=== PATIENT | male | born 1945 | race Caucasian/White ===

== ENCOUNTER 2017-04-23 08:00 | Outpatient (CLI) | payer MEDICARE, OTHER ==
[2017-04-23 12:23] LABS: BASOPHILS % (AUTO) 1.1 %; EOSINOPHILS # (AUTO) 0.1 10^3/uL (0.0-0.7); EOSINOPHILS % (AUTO) 2.7 %; HCT - HEMATOCRIT 32.6 % (42.0-52.0); HGB - HEMOGLOBIN 11.6 g/dL (14.0-18.0); IMMATURE RETIC FRACTION 0.57; LYMPHOCYTES # (AUTO) 1.5 10^3/uL (1.5-3.5); LYMPHOCYTES % (AUTO) 35.4 %; MEAN CORPUSCULAR HGB CONC 35.7 g/dL (32.0-36.0); MEAN CORPUSCULAR VOLUME 95.3 fL (80.0-94.0); MEAN PLATELET VOLUME 6.8 fL (7.4-11.4); MONOCYTES # (AUTO) 0.4 10^3/uL (0.0-1.0); MONOCYTES % (AUTO) 9.3 %; NEUTROPHILS # (AUTO) 2.1 10^3/uL (1.5-6.6); NEUTROPHILS % (AUTO) 51.5 %; RED BLOOD COUNT 3.42 10^6/uL (4.70-6.10); RED CELL DISTRIBUTION WIDTH 13.1 % (12.0-15.0); UNCORRECTED WHITE BLOOD COUNT 4.1 x10^3/uL; WHITE BLOOD COUNT 4.1 x10^3/uL (4.8-10.8)
[2017-04-23 12:37] LABS: ALBUMIN/GLOBULIN RATIO 1.2 (1.0-2.2); BILIRUBIN,TOTAL 1.2 mg/dL (0.2-1.0); BUN - BLOOD UREA NITROGEN 10 mg/dL (6-20); CALCIUM 8.8 mg/dL (8.5-10.3); CARBON DIOXIDE - CO2 23 mmol/L (21-32); CHLORIDE 98 mmol/L (101-111); CHOL/HDL RATIO 4.6 (<5.0); CHOLESTEROL 160 mg/dL; CREATININE 0.8 mg/dL (0.6-1.2); GFR - MDRD 96 (>89); GLUCOSE 189 mg/dL (70-100); HDL CHOLESTEROL 35 mg/dL; LDL/HDL RATIO 1.6 (<3.6); POTASSIUM 3.9 mmol/L (3.5-5.0); SODIUM 130 mmol/L (135-145); TOTAL PROTEIN 6.9 g/dL (6.7-8.2); TRIGLYCERIDES 341 mg/dL; URIC ACID 4.8 mg/dL (2.6-7.2); VLDL CHOLESTEROL 68 mg/dL
[2017-04-23 12:47] LABS: THYROID STIMULATING HORMONE 2.52 uIU/mL (0.34-5.60)
[2017-04-23 12:58] LABS: FOLATE 13.21 ng/mL (5.90 - >24.8)
== END 2017-04-23 08:01 | disposition home or self-care (01) ==
LOC: LAB.N 08:00
PROVIDERS: ATTEND Family Medicine
DX: D51.8 Other vitamin B12 deficiency anemias (principal); N52.9 Male erectile dysfunction, unspecified; E78.5 Hyperlipidemia, unspecified; I10 Essential (primary) hypertension; M10.9 Gout, unspecified
CPT/HCPCS: 36415; 80053; 80061; 82607; 82746; 84443; 84550; 85025; 85044

== ENCOUNTER 2017-05-20 09:16 | Outpatient (CLI) | payer MEDICARE, OTHER ==
[2017-05-20 12:53] LABS: CALCIUM 9.2 mg/dL (8.5-10.3); CREATININE 0.8 mg/dL (0.6-1.2); POTASSIUM 4.3 mmol/L (3.5-5.0)
[2017-05-20 13:48] LABS: HEMOGLOBIN A1C 0.91 g/dL
== END 2017-05-20 09:17 | disposition home or self-care (01) ==
LOC: LAB.N 09:16
PROVIDERS: ATTEND Family Medicine
DX: R73.01 Impaired fasting glucose (principal)
CPT/HCPCS: 36415; 80048; 83036

== ENCOUNTER 2017-09-22 10:12 | Outpatient (CLI) | payer MEDICARE, OTHER ==
[2017-09-22 13:40] LABS: HB2 TOTAL 14.4 g/dL; HEMOGLOBIN A1C 0.8 g/dL; HEMOGLOBIN A1C % 7.2 % (4.6-6.2)
[2017-09-22 13:41] LABS: CALCIUM 8.8 mg/dL (8.5-10.3); CREATININE 0.9 mg/dL (0.6-1.2)
== END 2017-09-22 10:13 | disposition home or self-care (01) ==
LOC: LAB.N 10:12
PROVIDERS: ATTEND Family Medicine
DX: E11.65 Type 2 diabetes mellitus with hyperglycemia (principal)
CPT/HCPCS: 36415; 80048; 83036

== ENCOUNTER 2018-02-09 08:00 | Outpatient (CLI) | payer MEDICARE, OTHER ==
[2018-02-09 13:23] LABS: CALCIUM 9.3 mg/dL (8.5-10.3); CREATININE 0.8 mg/dL (0.6-1.2)
[2018-02-09 14:42] LABS: HB2 TOTAL 13.3 g/dL; HEMOGLOBIN A1C 0.67 g/dL; HEMOGLOBIN A1C % 6.8 % (4.6-6.2)
== END 2018-02-09 08:01 ==
LOC: LAB.N 08:00
PROVIDERS: ATTEND Family Medicine
DX: E11.65 Type 2 diabetes mellitus with hyperglycemia (principal)
CPT/HCPCS: 36415; 80048; 83036

== ENCOUNTER 2018-05-13 08:49 | Outpatient (CLI) | payer MEDICARE, OTHER ==
[2018-05-13 13:29] LABS: BASOPHILS # (AUTO) 0.1 10^3/uL (0.0-0.1); BASOPHILS % (AUTO) 1.2 %; EOSINOPHILS # (AUTO) 0.2 10^3/uL (0.0-0.7); EOSINOPHILS % (AUTO) 3.6 %; LYMPHOCYTES # (AUTO) 1.8 10^3/uL (1.5-3.5); LYMPHOCYTES % (AUTO) 34.8 %; MEAN CORPUSCULAR HEMOGLOBIN 35.1 pg (27.0-31.0); MEAN CORPUSCULAR HGB CONC 35.7 g/dL (32.0-36.0); MEAN CORPUSCULAR VOLUME 98.1 fL (80.0-94.0); MEAN PLATELET VOLUME 6.6 fL (7.4-11.4); MONOCYTES # (AUTO) 0.5 10^3/uL (0.0-1.0); MONOCYTES % (AUTO) 10.8 %; NEUTROPHILS # (AUTO) 2.5 10^3/uL (1.5-6.6); NEUTROPHILS % (AUTO) 49.6 %; PLT - PLATELET COUNT 214 10^3/uL (130-450); RED BLOOD COUNT 3.71 10^6/uL (4.70-6.10); RED CELL DISTRIBUTION WIDTH 12.6 % (12.0-15.0)
[2018-05-13 13:43] LABS: ALBUMIN 3.8 g/dL (3.2-5.5); ALBUMIN/GLOBULIN RATIO 1.2 (1.0-2.2); ALKALINE PHOSPHATASE 45 IU/L (42-121); ALT ALANINE AMINOTRANSFERASE 13 IU/L (10-60); AST ASPARTATE AMINOTRANSFERASE 29 IU/L (10-42); BILIRUBIN,TOTAL 0.9 mg/dL (0.2-1.0); BUN - BLOOD UREA NITROGEN 9 mg/dL (6-20); CARBON DIOXIDE - CO2 25 mmol/L (21-32); CHLORIDE 96 mmol/L (101-111); CHOL/HDL RATIO 2.6 (<5.0); CHOLESTEROL 165 mg/dL; CREATININE 0.8 mg/dL (0.6-1.2); GFR - MDRD 96 (>89); GLUCOSE 207 mg/dL (70-100); HDL CHOLESTEROL 64 mg/dL; LDL CHOLESTEROL,CALCULATED 73 mg/dL; LDL/HDL RATIO 1.1 (<3.6); SODIUM 127 mmol/L (135-145); TOTAL PROTEIN 6.9 g/dL (6.7-8.2); VLDL CHOLESTEROL 28 mg/dL
[2018-05-13 13:48] LABS: PSA FREE 0.28 ng/mL (0.16-2.81)
[2018-05-13 13:49] LABS: PSA TOTAL 0.74 ng/mL (0.000-2.000)
[2018-05-13 13:55] LABS: HB2 TOTAL 13.8 g/dL; HEMOGLOBIN A1C 0.78 g/dL; HEMOGLOBIN A1C % 7.3 % (4.6-6.2)
== END 2018-05-13 23:59 | disposition home or self-care (01) ==
LOC: LAB.N 08:49
PROVIDERS: ATTEND Family Medicine
DX: E11.65 Type 2 diabetes mellitus with hyperglycemia (principal); E78.5 Hyperlipidemia, unspecified; Z12.5 Encounter for screening for malignant neoplasm of prostate
CPT/HCPCS: 36415; 80053; 80061; 83036; 83721; 84153; 84154; 85025

== ENCOUNTER 2018-08-14 08:00 | Outpatient (CLI) | payer MEDICARE, OTHER ==
[2018-08-14 15:12] LABS: HEMOGLOBIN A1C 0.79 g/dL; HEMOGLOBIN A1C % 6.7 % (4.6-6.2)
== END 2018-08-14 23:59 | disposition home or self-care (01) ==
LOC: LAB.N 08:00
PROVIDERS: ATTEND Physician Assistant Medical
DX: E11.9 Type 2 diabetes mellitus without complications (principal)
CPT/HCPCS: 36415; 83036

== ENCOUNTER 2018-10-29 08:00 | Outpatient (CLI) | payer MEDICARE, OTHER ==
[2018-10-29 19:00] LABS: ALBUMIN 4.1 g/dL (3.2-5.5); ALBUMIN/GLOBULIN RATIO 1.4 (1.0-2.2); BILIRUBIN,TOTAL 0.8 mg/dL (0.2-1.0); CALCIUM 9.3 mg/dL (8.5-10.3); CREATININE 0.8 mg/dL (0.6-1.2); TOTAL PROTEIN 7.1 g/dL (6.7-8.2)
[2018-10-29 19:01] LABS: BASOPHILS # (AUTO) 0.1 10^3/uL (0.0-0.1); BASOPHILS % (AUTO) 1.4 %; EOSINOPHILS # (AUTO) 0.2 10^3/uL (0.0-0.7); EOSINOPHILS % (AUTO) 4.9 %; HGB - HEMOGLOBIN 13.3 g/dL (14.0-18.0); LYMPHOCYTES # (AUTO) 1.5 10^3/uL (1.5-3.5); LYMPHOCYTES % (AUTO) 33.4 %; MEAN CORPUSCULAR HEMOGLOBIN 33.8 pg (27.0-31.0); MEAN CORPUSCULAR HGB CONC 35.1 g/dL (32.0-36.0); MEAN CORPUSCULAR VOLUME 96.4 fL (80.0-94.0); MEAN PLATELET VOLUME 6.3 fL (7.4-11.4); MONOCYTES # (AUTO) 0.5 10^3/uL (0.0-1.0); MONOCYTES % (AUTO) 10.6 %; NEUTROPHILS # (AUTO) 2.3 10^3/uL (1.5-6.6); NEUTROPHILS % (AUTO) 49.7 %; PLT - PLATELET COUNT 241 10^3/uL (130-450); RED BLOOD COUNT 3.93 10^6/uL (4.70-6.10); RED CELL DISTRIBUTION WIDTH 14.5 % (12.0-15.0); WHITE BLOOD COUNT 4.6 x10^3/uL (4.8-10.8)
== END 2018-10-29 23:59 | disposition home or self-care (01) ==
LOC: LAB.N 08:00
PROVIDERS: ATTEND Family Medicine
DX: I10 Essential (primary) hypertension (principal); R56.9 Unspecified convulsions; E87.1 Hypo-osmolality and hyponatremia; D51.9 Vitamin B12 deficiency anemia, unspecified
CPT/HCPCS: 36415; 80053; 84443; 85025

== ENCOUNTER 2018-11-14 15:51 | Emergency (ER) | payer MEDICARE, OTHER ==
[2018-11-14 15:56] VITALS: BP 163/79
[2018-11-14] MEDS ORDERED: LIDOCAINE MPF 1%-EPI 1:200000 30 ML VIAL SUBQ STA (16:02)
--- NOTE | 2018-11-14 16:06 | ED Physician Documentation ---
PD HPI HEAD INJURY - Stated complaint Stated Complaint: GLF HEAD LAC - Chief complaint Chief Complaint: Laceration - History obtained from History obtained from: Patient, Family - History of Present Illness Mechanism of head injury: Fell Where head injury occurred: Home (sidewalk, pressure washing driveway) Timing - onset: How many hours ago (1) Pain level max: 7 Pain level now: 4 Location of injury: Left, Front Quality of pain: Pain, Aching, Dull Associated symptoms: No: LOC, AMS, Amnesia, Nausea / vomiting, Neck pain, Paresthesias, Seizures, Ear drainage, Nasal drainage Symptoms improve with: Rest Symptoms worsen with: Palpation, Movement Contributing factors: No: Anticoagulated, Intoxicated Similar symptoms before: Has not had sx before Recently seen: Not recently seen - Additional information Additional information: allergic to tetanus vaccinations Review of Systems Constitutional: denies: Fever, Chills Nose: denies: Epistaxis Cardiac: denies: Chest pain / pressure Respiratory: denies: Cough GI: denies: Nausea, Vomiting, Diarrhea Skin: denies: Rash Musculoskeletal: denies: Neck pain, Back pain Neurologic: reports: Headache, Head injury. denies: Confused, Altered mental status, LOC PD PAST MEDICAL HISTORY - Past Medical History Cardiovascular: Hypertension, Coronary artery disease Respiratory: None Endocrine/Autoimmune: None GI: GERD, Ulcers : None HEENT: None, Chronic hearing loss Psych: None Musculoskeletal: Gout Derm: None - Past Surgical History General: Colonoscopy, EGD Cardiovascular: Vascular surgery, Angioplasty - Present Medications Home Medications: Ambulatory Orders Medication Instructions Recorded Confirmed Atenolol 1 tab PO BID 02/21/15 08/16/15 Losartan [Cozaar] 100 mg PO DAILY 02/21/15 08/16/15 Simvastatin 1 tab PO DAILY 02/21/15 08/16/15 Omeprazole 40 mg PO BID 08/16/15 08/16/15 - Allergies Allergies/Adverse Reactions: Allergies Allergy/AdvReac Type Severity Reaction Status Date / Time Penicillins Allergy Nausea Verified 11/14/18 15:56 tetanus toxoid, adsorbed Allergy Cramps Verified 11/14/18 15:56 PD ED PE NORMAL - Vitals Vital signs reviewed: Yes - General General: Alert and oriented X 3, No acute distress - HEENT HEENT: PERRL, EOMI, Ears normal, Moist mucous membranes, Pharynx benign, Other (4 cm laceration in the left forehead. Mainly over the left eye. Neurovascularly intact. Extraocular movements intact. Tender palpation along the supraorbital ridge. Also tender over the nasal bones. Has abrasions over the zygoma of the left face. Dentition intact.) - Neck Neck: Supple, no meningeal sign, No bony TTP - Cardiac Cardiac: RRR, Strong equal pulses - Respiratory Respiratory: No respiratory distress, Clear bilaterally - Abdomen Abdomen: Soft, Non tender, Non distended - Back Back: No spinal TTP - Derm Derm: Warm and dry - Neuro Neuro: Alert and oriented X 3, rehanger 2-12 intact, No motor deficit, No sensory deficit, Normal speech Eye Opening: Spontaneous Motor: Obeys Commands Verbal: Oriented GCS Score: 15 - Psych Psych: Normal mood, Normal affect Results - Vitals Vitals: Vital Signs - 24 hr 11/14/18 15:55 Temperature 37 C Heart Rate 83 Respiratory 20 Rate Blood Pressure 163/79 H O2 Saturation 99 Oxygen O2 Source Room air - Rads (name of study) head Ct Radiology: Prelim report reviewed, EMP read contemporaneously, See rad report (No acute traumatic intracranial abnormality. Subcutaneous 7 mm soft tissue hematoma in left lateral periorbital location. No acute displaced orbital fracture. No intraorbital abnormality.. ) maxillofacial CT Radiology: Prelim report reviewed, EMP read contemporaneously, See rad report (Normal maxillofacial CT. Mild mucosal thickening in bilateral maxillary sinuses, suggestive of maxillary sinusitis. ) Procedures - Laceration (location) forehead Length in cm: 4 Wound type: Curved, Into subcut fat, Clean Neurovascular status: Sensory intact, Motor intact, Vascular intact Anesthesia: Lidocaine 1% with epi Wound Preparation: Irrigated copiously NS, Wound explored, To the base Skin layer closure: Nylon, Interrupted, Size #-0 - enter number (5) Other: Patient tolerated well, No complications, Neurovascular intact, Dressing applied Complexity: Simple PD MEDICAL DECISION MAKING - ED course Complexity details: reviewed results, re-evaluated patient, considered differential, d/w patient, d/w family ED course: Patient with a fall today, sustained a forehead laceration. This was repaired. Tolerated well. No acute findings on CT scans. Warnings of infection and instructions on wound care given at bedside. Also counseled on how to minimize scarring. Patient and family counseled regarding signs and symptoms for which I believe and urgent re-evaluation would be necessary. Patient with good understanding of and agreement to plan and is comfortable going home at this time This document was made in part using voice recognition software. While efforts are made to proofread this document, sound alike and grammatical errors may occur. Departure - Departure Disposition: 01 Home, Self Care Clinical Impression: Laceration of forehead Qualifiers: Encounter type: initial encounter Qualified Code(s): S01.81XA - Laceration without foreign body of other part of head, initial encounter Head injury Qualifiers: Encounter type: initial encounter Qualified Code(s): S09.90XA - Unspecified injury of head, initial encounter Condition: Good Instructions: ED Head Injury Closed, ED Laceration Facial Sutr Tape Follow-Up: Peng Ga PA-C [Primary Care Provider] - Within 1 week Comments: Return if you worsen. Your CT scans do not show any acute abnormalities. You can use Motrin or Tylenol as needed for pain. The sutures should be removed in approximately 7 days, this can be done either here or with your doctor. Return for redness, swelling or drainage from the wound. Discharge Date/Time: 11/14/18 17:21
--- NOTE | 2018-11-14 17:01 | CT Report ---
Reason: fall, head injury Procedure Date: 11/14/2018 Accession Number: [id number] / [id number] Procedure: CT - HEAD WO CPT Code: FULL RESULT: EXAM: CT HEAD EXAM DATE: 11/14/2018 04:44 PM. CLINICAL HISTORY: Fall, head injury. COMPARISON: None. TECHNIQUE: Multiaxial CT images were obtained from the foramen magnum to the vertex. Reformats: Sagittal and coronal. IV contrast: None. In accordance with CT protocol optimization, one or more of the following dose reduction techniques were utilized for this exam: automated exposure control, adjustment of mA and/or KV based on patient size, or use of iterative reconstructive technique. FINDINGS: Parenchyma: No intraparenchymal hemorrhage. No evidence of mass, midline shift, or CT findings of infarction. Bills-white differentiation is distinct. Extraaxial Spaces: Normal for age. No subdural or epidural collections identified. Ventricles: Normal in size and position. Sinuses and Orbits: Imaged paranasal sinuses, orbits, and mastoids show no significant abnormality. Bones: No evidence of fracture or calvarial defect. Other: A Subcutaneous soft tissue hematoma is seen in the left lateral periorbital location, measuring 7 mm. No underlying acute displaced orbital fracture. IMPRESSION: No acute traumatic intracranial abnormality. Subcutaneous 7 mm soft tissue hematoma in left lateral periorbital location. No acute displaced orbital fracture. No intraorbital abnormality.. RADIA
--- NOTE | 2018-11-14 17:04 | CT Report ---
Reason: fall, face injury Procedure Date: 11/14/2018 Accession Number: [id number] / [id number] Procedure: CT - MAXILLOFACIAL WO CPT Code: FULL RESULT: EXAM: CT MAXILLOFACIAL WITHOUT CONTRAST EXAM DATE: 11/14/2018 04:44 PM. CLINICAL HISTORY: Fall, face injury. COMPARISONS: None. TECHNIQUE: Thin-section axial images were acquired of the face without contrast. Post-processing: Coronal and sagittal reformats. Other: None. In accordance with CT protocol optimization, one or more of the following dose reduction techniques were utilized for this exam: automated exposure control, adjustment of mA and/or KV based on patient size, or use of iterative reconstructive technique. FINDINGS: Soft Tissue: The infratemporal fossa and parapharyngeal spaces are unremarkable. Orbits: Symmetric and unremarkable. Bones: No fracture or bone lesion. Temporomandibular Joints: The temporomandibular joints are symmetric and normally located. Sinuses: Mild mucosal thickening in bilateral maxillary sinuses, suggestive of mild maxillary sinusitis. Rest of the paranasal sinuses are unremarkable. Other: A 7 mm left lateral subcutaneous periorbital hematoma. No acute displaced orbital fracture. Intraorbital contents are unremarkable. IMPRESSION: Normal maxillofacial CT. Mild mucosal thickening in bilateral maxillary sinuses, suggestive of maxillary sinusitis. RADIA
== END 2018-11-14 17:21 | disposition home or self-care (01) ==
LOC: ED 15:51
DX: S01.81XA Laceration without foreign body of other part of head, initial encounter (principal); S09.90XA Unspecified injury of head, initial encounter; S00.81XA Abrasion of other part of head, initial encounter; W01.0XXA Fall on same level from slipping, tripping and stumbling without subsequent striking against object, initial encounter; Y93.H9 Activity, other involving exterior property and land maintenance, building and construction; Y92.008 Other place in unspecified non-institutional (private) residence as the place of occurrence of the external cause; I10 Essential (primary) hypertension
CPT/HCPCS: 12013; 70450; 70486; 99283

== ENCOUNTER 2018-11-20 08:00 | Outpatient (CLI) | payer MEDICARE, OTHER ==
[2018-11-20 12:48] LABS: BASOPHILS # (AUTO) 0.1 10^3/uL (0.0-0.1); BASOPHILS % (AUTO) 1.1 %; EOSINOPHILS # (AUTO) 0.2 10^3/uL (0.0-0.7); EOSINOPHILS % (AUTO) 3.7 %; HGB - HEMOGLOBIN 13.2 g/dL (14.0-18.0); LYMPHOCYTES # (AUTO) 2.1 10^3/uL (1.5-3.5); LYMPHOCYTES % (AUTO) 38.4 %; MEAN CORPUSCULAR HGB CONC 34.3 g/dL (32.0-36.0); MEAN CORPUSCULAR VOLUME 96.3 fL (80.0-94.0); MEAN PLATELET VOLUME 8.9 fL (7.4-11.4); MONOCYTES # (AUTO) 0.5 10^3/uL (0.0-1.0); MONOCYTES % (AUTO) 9.9 %; NEUTROPHILS # (AUTO) 2.5 10^3/uL (1.5-6.6); NEUTROPHILS % (AUTO) 46.7 %; PLT - PLATELET COUNT 227 10^3/uL (130-450); RED CELL DISTRIBUTION WIDTH 12.9 % (12.0-15.0); WHITE BLOOD COUNT 5.3 x10^3/uL (4.8-10.8)
[2018-11-20 14:20] LABS: ALBUMIN 3.9 g/dL (3.2-5.5); ALBUMIN/GLOBULIN RATIO 1.2 (1.0-2.2); BILIRUBIN,TOTAL 1.2 mg/dL (0.2-1.0); CALCIUM 9.3 mg/dL (8.5-10.3); CREATININE 0.7 mg/dL (0.6-1.2); TOTAL PROTEIN 7.1 g/dL (6.7-8.2)
== END 2018-11-20 23:59 | disposition home or self-care (01) ==
LOC: LAB.N 08:00
PROVIDERS: ATTEND Family Medicine
DX: E87.1 Hypo-osmolality and hyponatremia (principal); R56.9 Unspecified convulsions; D51.9 Vitamin B12 deficiency anemia, unspecified
CPT/HCPCS: 36415; 80053; 85025

== ENCOUNTER 2018-12-09 08:00 | Outpatient (CLI) | payer MEDICARE, OTHER ==
[2018-12-09 18:37] LABS: BASOPHILS # (AUTO) 0.1 10^3/uL (0.0-0.1); BASOPHILS % (AUTO) 1.2 %; EOSINOPHILS # (AUTO) 0.2 10^3/uL (0.0-0.7); EOSINOPHILS % (AUTO) 2.6 %; HGB - HEMOGLOBIN 13.7 g/dL (14.0-18.0); LYMPHOCYTES # (AUTO) 2.2 10^3/uL (1.5-3.5); LYMPHOCYTES % (AUTO) 37.6 %; MEAN CORPUSCULAR HEMOGLOBIN 33.4 pg (27.0-31.0); MEAN CORPUSCULAR HGB CONC 35.4 g/dL (32.0-36.0); MEAN CORPUSCULAR VOLUME 94.4 fL (80.0-94.0); MEAN PLATELET VOLUME 8.6 fL (7.4-11.4); MONOCYTES # (AUTO) 0.6 10^3/uL (0.0-1.0); NEUTROPHILS # (AUTO) 2.7 10^3/uL (1.5-6.6); NEUTROPHILS % (AUTO) 47.3 %; PLT - PLATELET COUNT 210 10^3/uL (130-450); RED CELL DISTRIBUTION WIDTH 12.5 % (12.0-15.0); WHITE BLOOD COUNT 5.8 x10^3/uL (4.8-10.8)
[2018-12-09 18:49] LABS: HB2 TOTAL 14.2 g/dL; HEMOGLOBIN A1C 0.7 g/dL; HEMOGLOBIN A1C % 6.7 % (4.6-6.2)
[2018-12-09 18:57] LABS: ALBUMIN/GLOBULIN RATIO 1.3 (1.0-2.2); ALKALINE PHOSPHATASE 37 IU/L (42-121); ALT ALANINE AMINOTRANSFERASE < 10 IU/L (10-60); AST ASPARTATE AMINOTRANSFERASE 18 IU/L (10-42); BUN - BLOOD UREA NITROGEN 10 mg/dL (6-20); CALCIUM 9.2 mg/dL (8.5-10.3); CARBON DIOXIDE - CO2 24 mmol/L (21-32); CHLORIDE 96 mmol/L (101-111); CREATININE 0.7 mg/dL (0.6-1.2); GFR - MDRD 111 (>89); GLUCOSE 224 mg/dL (70-100); SODIUM 128 mmol/L (135-145); TOTAL PROTEIN 7.1 g/dL (6.7-8.2)
== END 2018-12-09 23:59 | disposition home or self-care (01) ==
LOC: LAB.WCP 08:00
PROVIDERS: ATTEND Physician Assistant Medical
DX: E87.1 Hypo-osmolality and hyponatremia (principal); E11.9 Type 2 diabetes mellitus without complications; R56.9 Unspecified convulsions; D51.8 Other vitamin B12 deficiency anemias
CPT/HCPCS: 36415; 80053; 83036; 85025

== ENCOUNTER 2019-01-06 09:55 | Outpatient (CLI) | payer MEDICARE, OTHER ==
[2019-01-06 13:06] LABS: CALCIUM 9.1 mg/dL (8.5-10.3); CREATININE 0.6 mg/dL (0.6-1.2)
== END 2019-01-06 23:59 | disposition home or self-care (01) ==
LOC: LAB.N 09:55
PROVIDERS: ATTEND Physician Assistant Medical
DX: E87.1 Hypo-osmolality and hyponatremia (principal)
CPT/HCPCS: 36415; 80048

== ENCOUNTER 2019-04-05 13:33 | Outpatient (CLI) | payer MEDICARE, OTHER ==
[2019-04-05 19:30] LABS: CALCIUM 8.9 mg/dL (8.5-10.3); CREATININE 0.8 mg/dL (0.6-1.2)
[2019-04-05 19:48] LABS: HB2 TOTAL 14.2 g/dL; HEMOGLOBIN A1C 0.97 g/dL; HEMOGLOBIN A1C % 8.4 % (4.6-6.2)
== END 2019-04-05 23:59 | disposition home or self-care (01) ==
LOC: LAB.N 13:33
PROVIDERS: ATTEND Physician Assistant Medical
DX: E11.9 Type 2 diabetes mellitus without complications (principal)
CPT/HCPCS: 36415; 80048; 83036

== ENCOUNTER 2019-07-06 08:00 | Outpatient (CLI) | payer MEDICARE, OTHER ==
[2019-07-06 13:03] LABS: CALCIUM 9.3 mg/dL (8.5-10.3); CREATININE 0.8 mg/dL (0.6-1.2)
[2019-07-06 13:11] LABS: HB2 TOTAL 13.5 g/dL; HEMOGLOBIN A1C 0.67 g/dL; HEMOGLOBIN A1C % 6.7 % (4.6-6.2)
== END 2019-07-06 08:01 | disposition home or self-care (01) ==
LOC: LAB.N 08:00
PROVIDERS: ATTEND Physician Assistant Medical
DX: E87.1 Hypo-osmolality and hyponatremia (principal); E11.9 Type 2 diabetes mellitus without complications
CPT/HCPCS: 36415; 80048; 83036

== ENCOUNTER 2019-11-02 08:04 | Outpatient (CLI) | payer MEDICARE, OTHER ==
[2019-11-02 12:18] LABS: CALCIUM 9.3 mg/dL (8.5-10.3); CREATININE 0.8 mg/dL (0.6-1.2)
[2019-11-02 12:24] LABS: HB2 TOTAL 14.7 g/dL; HEMOGLOBIN A1C 0.58 g/dL; HEMOGLOBIN A1C % 5.8 % (4.6-6.2)
== END 2019-11-02 23:59 | disposition home or self-care (01) ==
LOC: LAB.WCP 08:04
PROVIDERS: ATTEND Nurse Practitioner Family
DX: E11.65 Type 2 diabetes mellitus with hyperglycemia (principal)
CPT/HCPCS: 36415; 80048; 83036

== ENCOUNTER 2019-11-03 08:31 | Outpatient (CLI) | payer MEDICARE, OTHER ==
[2019-11-03 12:06] LABS: CALCIUM 9.1 mg/dL (8.5-10.3); CREATININE 0.7 mg/dL (0.6-1.2)
== END 2019-11-03 23:59 | disposition home or self-care (01) ==
LOC: LAB.WCP 08:31
PROVIDERS: ATTEND Nurse Practitioner Family
DX: E87.5 Hyperkalemia (principal)
CPT/HCPCS: 36415; 80048

== ENCOUNTER 2019-11-09 08:00 | Outpatient (CLI) | payer MEDICARE, OTHER ==
[2019-11-09 11:50] LABS: CALCIUM 8.7 mg/dL (8.5-10.3); CREATININE 0.6 mg/dL (0.6-1.2)
== END 2019-11-09 23:59 | disposition home or self-care (01) ==
LOC: LAB.WCP 08:00
PROVIDERS: ATTEND Nurse Practitioner Family
DX: E87.1 Hypo-osmolality and hyponatremia (principal)
CPT/HCPCS: 36415; 80048; 83930; 84300

== ENCOUNTER 2019-11-18 07:12 | Outpatient (CLI) | payer MEDICARE, OTHER | END 2019-11-18 23:59 | disposition home or self-care (01) | LOC: LAB.WCP 07:12 | PROVIDERS: ATTEND Nurse Practitioner Family | DX: E87.1 Hypo-osmolality and hyponatremia (principal) | CPT/HCPCS: 83935 ==

== ENCOUNTER 2020-02-10 07:55 | Outpatient (CLI) | payer MEDICARE, OTHER ==
[2020-02-10 12:35] LABS: BASOPHILS # (AUTO) 0.1 10^3/uL (0.0-0.1); BASOPHILS % (AUTO) 1.3 %; EOSINOPHILS # (AUTO) 0.2 10^3/uL (0.0-0.7); EOSINOPHILS % (AUTO) 4.6 %; HGB - HEMOGLOBIN 14.5 g/dL (14.0-18.0); LYMPHOCYTES # (AUTO) 1.9 10^3/uL (1.5-3.5); LYMPHOCYTES % (AUTO) 42.3 %; MEAN CORPUSCULAR HEMOGLOBIN 34.8 pg (27.0-31.0); MEAN CORPUSCULAR HGB CONC 36.2 g/dL (32.0-36.0); MEAN CORPUSCULAR VOLUME 96.2 fL (80.0-94.0); MEAN PLATELET VOLUME 8.3 fL (7.4-11.4); MONOCYTES # (AUTO) 0.5 10^3/uL (0.0-1.0); MONOCYTES % (AUTO) 11.5 %; NEUTROPHILS # (AUTO) 1.8 10^3/uL (1.5-6.6); NEUTROPHILS % (AUTO) 40.1 %; PLT - PLATELET COUNT 177 10^3/uL (130-450); RED BLOOD COUNT 4.17 10^6/uL (4.70-6.10); WHITE BLOOD COUNT 4.5 x10^3/uL (4.8-10.8)
[2020-02-10 13:02] LABS: ALBUMIN 4.2 g/dL (3.2-5.5); ALBUMIN/GLOBULIN RATIO 1.4 (1.0-2.2); ALKALINE PHOSPHATASE 33 IU/L (42-121); ALT ALANINE AMINOTRANSFERASE 14 IU/L (10-60); AST ASPARTATE AMINOTRANSFERASE 29 IU/L (10-42); BILIRUBIN,TOTAL 1.2 mg/dL (0.2-1.0); BUN - BLOOD UREA NITROGEN 8 mg/dL (6-20); CALCIUM 9.5 mg/dL (8.5-10.3); CARBON DIOXIDE - CO2 24 mmol/L (21-32); CHLORIDE 99 mmol/L (101-111); CHOL/HDL RATIO 2.8 (<5.0); CHOLESTEROL 207 mg/dL; CREATININE 0.6 mg/dL (0.6-1.2); GLUCOSE 117 mg/dL (70-100); HDL CHOLESTEROL 75 mg/dL; LDL CHOLESTEROL,CALCULATED 115 mg/dL; LDL/HDL RATIO 1.5 (<3.6); SODIUM 132 mmol/L (135-145); TOTAL PROTEIN 7.1 g/dL (6.7-8.2); VLDL CHOLESTEROL 17 mg/dL
== END 2020-02-10 23:59 | disposition home or self-care (01) ==
LOC: LAB.WCP 07:55
PROVIDERS: ATTEND Nurse Practitioner Family
DX: E87.1 Hypo-osmolality and hyponatremia (principal); E11.9 Type 2 diabetes mellitus without complications; E78.5 Hyperlipidemia, unspecified
CPT/HCPCS: 36415; 80053; 80061; 83036; 83721; 84443; 85025

== ENCOUNTER 2020-08-08 07:00 | Outpatient (CLI) | payer MEDICARE, OTHER ==
[2020-08-08 12:20] LABS: CALCIUM 9.2 mg/dL (8.5-10.3); CREATININE 0.7 mg/dL (0.6-1.2); POTASSIUM 4.6 mmol/L (3.5-5.0)
[2020-08-08 13:19] LABS: ESTIMATED AVERAGE GLUCOSE 123 mg/dL (70-100); HEMOGLOBIN A1c% 5.9 % (4.27-6.07)
== END 2020-08-08 23:59 | disposition home or self-care (01) ==
LOC: LAB.WCP 07:00
PROVIDERS: ATTEND Nurse Practitioner Family
DX: E87.1 Hypo-osmolality and hyponatremia (principal); E11.9 Type 2 diabetes mellitus without complications
CPT/HCPCS: 36415; 80048; 83036

== ENCOUNTER 2020-10-09 08:00 | Outpatient (CLI) | payer MEDICARE, OTHER ==
[2020-10-09 13:38] LABS: BASOPHILS # (AUTO) 0.1 10^3/uL (0.0-0.1); BASOPHILS % (AUTO) 1.5 %; EOSINOPHILS # (AUTO) 0.3 10^3/uL (0.0-0.7); EOSINOPHILS % (AUTO) 4.8 %; HCT - HEMATOCRIT 36.9 % (42.0-52.0); HGB - HEMOGLOBIN 13.4 g/dL (14.0-18.0); LYMPHOCYTES # (AUTO) 1.7 10^3/uL (1.5-3.5); LYMPHOCYTES % (AUTO) 32.4 %; MEAN CORPUSCULAR HEMOGLOBIN 35.2 pg (27.0-31.0); MEAN CORPUSCULAR HGB CONC 36.3 g/dL (32.0-36.0); MEAN CORPUSCULAR VOLUME 96.9 fL (80.0-94.0); MEAN PLATELET VOLUME 8.5 fL (7.4-11.4); MONOCYTES # (AUTO) 0.7 10^3/uL (0.0-1.0); MONOCYTES % (AUTO) 13.4 %; NEUTROPHILS # (AUTO) 2.6 10^3/uL (1.5-6.6); NEUTROPHILS % (AUTO) 47.7 %; PLT - PLATELET COUNT 237 10^3/uL (130-450); RED BLOOD COUNT 3.81 10^6/uL (4.70-6.10); WHITE BLOOD COUNT 5.4 x10^3/uL (4.8-10.8)
[2020-10-09 14:02] LABS: ALBUMIN 4.1 g/dL (3.2-5.5); ALBUMIN/GLOBULIN RATIO 1.5 (1.0-2.2); ALKALINE PHOSPHATASE 31 IU/L (42-121); ALT ALANINE AMINOTRANSFERASE 11 IU/L (10-60); AST ASPARTATE AMINOTRANSFERASE 21 IU/L (10-42); BILIRUBIN,TOTAL 1.1 mg/dL (0.2-1.0); BUN - BLOOD UREA NITROGEN 6 mg/dL (6-20); CARBON DIOXIDE - CO2 24 mmol/L (21-32); CHLORIDE 96 mmol/L (101-111); CHOLESTEROL 126 mg/dL; CREATININE 0.7 mg/dL (0.6-1.2); GFR - MDRD 111 (>89); GLUCOSE 124 mg/dL (70-100); HDL CHOLESTEROL 62 mg/dL; LDL CHOLESTEROL,CALCULATED 52 mg/dL; LDL/HDL RATIO 0.8 (<3.6); POTASSIUM 4.7 mmol/L (3.5-5.0); SODIUM 129 mmol/L (135-145); TOTAL PROTEIN 6.9 g/dL (6.7-8.2); TRIGLYCERIDES 61 mg/dL; VLDL CHOLESTEROL 12 mg/dL
[2020-10-09 14:10] LABS: ESTIMATED AVERAGE GLUCOSE 114 mg/dL (70-100); HEMOGLOBIN A1c% 5.6 % (4.27-6.07)
[2020-10-09 14:22] LABS: THYROID STIMULATING HORMONE 2.32 uIU/mL (0.34-5.60)
== END 2020-10-09 23:59 | disposition home or self-care (01) ==
LOC: LAB.WCP 08:00
PROVIDERS: ATTEND Physician Assistant Medical
DX: E11.8 Type 2 diabetes mellitus with unspecified complications (principal); Z12.5 Encounter for screening for malignant neoplasm of prostate
CPT/HCPCS: 36415; 80053; 80061; 83036; 84443; 85025; G0103; 82043; 82570; 83721; 84153

== ENCOUNTER 2020-11-16 08:00 | Outpatient (CLI) | payer MEDICARE, OTHER ==
[2020-11-16 12:33] LABS: ALBUMIN 4.1 g/dL (3.2-5.5); ALBUMIN/GLOBULIN RATIO 1.4 (1.0-2.2); ALKALINE PHOSPHATASE 32 IU/L (42-121); ALT ALANINE AMINOTRANSFERASE < 10 IU/L (10-60); AST ASPARTATE AMINOTRANSFERASE 19 IU/L (10-42); BILIRUBIN,TOTAL 1.2 mg/dL (0.2-1.0); BUN - BLOOD UREA NITROGEN 5 mg/dL (6-20); CARBON DIOXIDE - CO2 24 mmol/L (21-32); CHLORIDE 99 mmol/L (101-111); CREATININE 0.6 mg/dL (0.6-1.2); GFR - MDRD 132 (>89); GLUCOSE 109 mg/dL (70-100); POTASSIUM 4.3 mmol/L (3.5-5.0); SODIUM 130 mmol/L (135-145)
== END 2020-11-16 23:59 | disposition home or self-care (01) ==
LOC: LAB.WCP 08:00
PROVIDERS: ATTEND Family Medicine
DX: E87.1 Hypo-osmolality and hyponatremia (principal)
CPT/HCPCS: 36415; 80053; 83930; 83935; 84300

== ENCOUNTER 2021-01-01 16:30 | Outpatient (CLI) | payer MEDICARE, OTHER | END 2021-01-01 16:31 | disposition home or self-care (01) | LOC: COV 16:30 | PROVIDERS: ATTEND Family Medicine | DX: Z20.822 Contact with and (suspected) exposure to COVID-19 (principal) ==

== ENCOUNTER 2021-02-08 07:56 | Outpatient (CLI) | payer MEDICARE, OTHER ==
[2021-02-08 12:09] LABS: BASOPHILS # (AUTO) 0.1 10^3/uL (0.0-0.1); BASOPHILS % (AUTO) 1.2 %; EOSINOPHILS # (AUTO) 0.3 10^3/uL (0.0-0.7); EOSINOPHILS % (AUTO) 6.4 %; HCT - HEMATOCRIT 37.3 % (42.0-52.0); LYMPHOCYTES # (AUTO) 1.8 10^3/uL (1.5-3.5); LYMPHOCYTES % (AUTO) 34.8 %; MEAN CORPUSCULAR HGB CONC 34.9 g/dL (32.0-36.0); MEAN CORPUSCULAR VOLUME 94.7 fL (80.0-94.0); MEAN PLATELET VOLUME 8.7 fL (7.4-11.4); MONOCYTES # (AUTO) 0.6 10^3/uL (0.0-1.0); MONOCYTES % (AUTO) 12.5 %; NEUTROPHILS # (AUTO) 2.3 10^3/uL (1.5-6.6); NEUTROPHILS % (AUTO) 44.9 %; PLT - PLATELET COUNT 155 10^3/uL (130-450); RED BLOOD COUNT 3.94 10^6/uL (4.70-6.10); RED CELL DISTRIBUTION WIDTH 12.1 % (12.0-15.0); WHITE BLOOD COUNT 5.1 x10^3/uL (4.8-10.8)
[2021-02-08 12:40] LABS: ALBUMIN 4.4 g/dL (3.2-5.5); ALBUMIN/GLOBULIN RATIO 1.6 (1.0-2.2); ALKALINE PHOSPHATASE 33 IU/L (42-121); ALT ALANINE AMINOTRANSFERASE < 10 IU/L (10-60); AST ASPARTATE AMINOTRANSFERASE 23 IU/L (10-42); BILIRUBIN,TOTAL 1.6 mg/dL (0.2-1.0); BUN - BLOOD UREA NITROGEN 7 mg/dL (6-20); CALCIUM 9.4 mg/dL (8.5-10.3); CARBON DIOXIDE - CO2 25 mmol/L (21-32); CHLORIDE 99 mmol/L (101-111); CHOLESTEROL 135 mg/dL; CREATININE 0.8 mg/dL (0.6-1.2); GFR - MDRD 95 (>89); GLUCOSE 117 mg/dL (70-100); HDL CHOLESTEROL 68 mg/dL; LDL CHOLESTEROL,CALCULATED 58 mg/dL; LDL/HDL RATIO 0.9 (<3.6); SODIUM 134 mmol/L (135-145); TOTAL PROTEIN 7.2 g/dL (6.7-8.2); TRIGLYCERIDES 45 mg/dL; VLDL CHOLESTEROL 9 mg/dL
[2021-02-08 12:45] LABS: THYROID STIMULATING HORMONE 1.6 uIU/mL (0.34-5.60)
[2021-02-08 12:50] LABS: ESTIMATED AVERAGE GLUCOSE 126 mg/dL (70-100)
== END 2021-02-08 23:59 | disposition home or self-care (01) ==
LOC: LAB.WCP 07:56
PROVIDERS: ATTEND Family Medicine
DX: E87.5 Hyperkalemia (principal); E87.1 Hypo-osmolality and hyponatremia; E11.9 Type 2 diabetes mellitus without complications; E78.5 Hyperlipidemia, unspecified
CPT/HCPCS: 36415; 80053; 80061; 83036; 83721; 84443; 85025

== ENCOUNTER 2021-03-28 11:27 | Outpatient (CLI) | payer MEDICARE, OTHER | END 2021-03-28 11:28 | disposition critical access hospital (66) | LOC: EMS 11:27 | DX: Z04.3 Encounter for examination and observation following other accident (principal); R04.0 Epistaxis | CPT/HCPCS: A0425; A0429 ==

== ENCOUNTER 2021-03-28 11:56 | Emergency (ER) | payer MEDICARE, OTHER ==
[2021-03-28 12:10] VITALS: BP 170/95
--- NOTE | 2021-03-28 12:17 | ED Physician Documentation ---
History of Present Illness - Stated complaint Stated Complaint: GLF, NOSE LAC - Chief complaint Chief Complaint: Trauma Hd/Nk - Additonal information Additional information: 75-year-old male presents emergency department for evaluation of facial trauma and left-sided epistaxis. This gentleman had moved a carpet in his kitchen in anticipation of moving a refrigerator. He did trip on the newly moved carpet falling forward striking his face on the ground. There was no loss of consciousness. He is not anticoagulated though he does take a daily aspirin. He was able to get up from the fall on his own but did have a large left-sided nasal bleed as well as ecchymosis. EMS was summoned. He was placed in a c- collar and transported here. Patient has full recall of the events. Review of Systems Constitutional: denies: Fever, Chills Eyes: reports: Reviewed and negative Ears: reports: Reviewed and negative Nose: reports: Epistaxis Throat: reports: Reviewed and negative Cardiac: reports: Reviewed and negative Respiratory: reports: Reviewed and negative GI: reports: Reviewed and negative Skin: reports: Abrasion (s) (bridge of nose) Musculoskeletal: reports: Reviewed and negative Neurologic: reports: Reviewed and negative PD PAST MEDICAL HISTORY - Past Medical History Cardiovascular: Hypertension, Coronary artery disease Respiratory: None Endocrine/Autoimmune: None GI: GERD, Ulcers : None HEENT: None, Chronic hearing loss Psych: None Musculoskeletal: Gout Derm: None - Past Surgical History General: Colonoscopy, EGD Cardiovascular: Vascular surgery, Angioplasty - Present Medications Home Medications: Ambulatory Orders Medication Instructions Recorded Confirmed Atenolol 1 tab PO BID 02/21/15 08/16/15 Losartan [Cozaar] 100 mg PO DAILY 02/21/15 08/16/15 Simvastatin 1 tab PO DAILY 02/21/15 08/16/15 Omeprazole 40 mg PO BID 08/16/15 08/16/15 cephALEXin [Keflex] 500 mg PO Q6H #28 cap 03/28/21 - Allergies Allergies/Adverse Reactions: Allergies Allergy/AdvReac Type Severity Reaction Status Date / Time Penicillins Allergy Nausea Verified 03/28/21 12:10 tetanus toxoid, adsorbed Allergy Cramps Verified 03/28/21 12:10 PD ED PE EXPANDED - General General: Alert, No acute distress, Well developed/nourished - HEENT HEENT: Head injury (Superficial abrasion to the bridge of the nose with significant ecchymosis of the nose and underlying the eyes bilaterally), PERRL, Ears normal, Left nares epistaxis - Neck Neck: Supple w/out meningeal sx, Soft tissue TTP (Generalized Soft tissue tenderness. no midline tenderness. FULL ROM. C-collar removed by provder following CT results). No: Bony TTP - Cardiac Cardiac: Regular Rate, Radial strong equal, Pedal strong equal, Cap refill < 2 sec. No: Murmur Present - Respiratory Respiratory: Clear to ausultation chelo. No: Distress, Labored - Abdomen Abdomen: Normal Bowel sounds. No: Tender to palpation - Neuro Neuro: Alert and Oriented X 3, CNII-XII intact, Normal gait, Normal finger nose, Normal speech - GCS Eye Opening: Spontaneous Motor: Obeys Commands Verbal: Oriented Total: 15 Results - Vitals Vitals: Vital Signs - 24 hr 03/28/21 12:05 Temperature 36.5 C Heart Rate 70 Respiratory 15 Rate Blood Pressure 170/95 H O2 Saturation 99 Oxygen O2 Source Room air - Labs Labs: Laboratory Tests 03/28/21 03/28/21 12:20 12:20 WBC 5.6 RBC 3.42 L Hgb 12.0 L Hct 32.2 L MCV 94.2 H MCH 35.1 H MCHC 37.3 H RDW 12.1 Plt Count 145 MPV 7.9 Sodium 122 L Potassium 4.4 Chloride 89 L Carbon Dioxide 22 Anion Gap 11.0 BUN 9 Creatinine 0.6 Estimated GFR (MDRD) 132 Glucose 113 H Calcium 9.0 - Rads (name of study) CT head Radiology: Final report received (No acute intracranial abnormalities. No intracranial bleed or skull fractures. Cerebral volume loss.) Max fac ct Radiology: Final report received (Comminuted and displaced fractures of the bilateral nasal bones as well as comminuted and displaced fractures of the bony nasal septum.) CT cervical spine Radiology: Final report received (No acute cervical fractures) PD MEDICAL DECISION MAKING - ED course Complexity details: reviewed results, re-evaluated patient, d/w patient ED course: 75-year-old male presented emergency department for evaluation of facial trauma after mechanical ground-level fall this afternoon when he tripped on a rug that he had moved. There was no loss of consciousness. He does present with left- sided epistaxis as well as a superficial laceration to the bridge of his nose. No LOC. no focal neuro deficit CT max face does show comminuted and displaced bilateral nasal bone fractures as well as nasal septal fractures. CT of the head and neck were without acute pathology. The laceration of his nose was glued. We discussed that patient should have nasal precautions for the next 7 to 10 days which include avoidance of nasal blowing as well as saline nasal rinses 2-3 times daily. Pt will be started on keflex. Patient will follow up with his primary care provider. May benefit from ENT evaluation in the future though emergent evaluation not indicated today. Departure - Departure Disposition: 01 Home, Self Care Clinical Impression: Nasal bone fractures Qualifiers: Encounter type: initial encounter Fracture type: open Qualified Code(s): S02.2 XXB - Fracture of nasal bones, initial encounter for open fracture Condition: Stable Record reviewed to determine appropriate education?: Yes Instructions: ED Laceration Nose W Fx Ch Follow-Up: Roger Winchester DO [Primary Care Provider] - Prescriptions: cephALEXin [Keflex] 500 mg PO Q6H #28 cap Comments: Sergey luther were seen in the emergency department today after ground-level fall at home in which she tripped on a rug falling forward striking her face on the ground. The CT of your head and neck do not show any broken bones or fractures of your neck. We did do specific nasal CAT scan that does show nasal fractures. Because of the nasal fractures you will have a very minor and slow nasal bleed for about the next week. It is important that you do not blow your nose. Blowing your nose will cause the nosebleed to worsen. Please buy saline nasal spray/[place] mist nasal spray and use that 2-3 times a day to help keep your nose clear. You may benefit from referral to an ear nose throat doctor for further evaluation of the nasal fractures though it is not likely any surgery would be performed. [place] Please feel that begin taking 4 times a day for the next week. If any point you develop fevers have an altered level of consciousness slurred speech or focal weakness in your arms or legs and please return immediately to the emergency department. Discharge Date/Time: 03/28/21 14:11
[2021-03-28 12:24] LABS: HCT - HEMATOCRIT 32.2 % (42.0-52.0); MEAN CORPUSCULAR HEMOGLOBIN 35.1 pg (27.0-31.0); MEAN CORPUSCULAR HGB CONC 37.3 g/dL (32.0-36.0); MEAN CORPUSCULAR VOLUME 94.2 fL (80.0-94.0); MEAN PLATELET VOLUME 7.9 fL (7.4-11.4); RED BLOOD COUNT 3.42 10^6/uL (4.70-6.10); RED CELL DISTRIBUTION WIDTH 12.1 % (12.0-15.0); WHITE BLOOD COUNT 5.6 x10^3/uL (4.8-10.8)
[2021-03-28 12:39] LABS: CREATININE 0.6 mg/dL (0.6-1.2); POTASSIUM 4.4 mmol/L (3.5-5.0)
--- NOTE | 2021-03-28 12:59 | CT Report ---
PROCEDURE: CERVICAL SPINE WO INDICATIONS: glf TECHNIQUE: Noncontrast 3 mm thick sections acquired from the skull base to the T4 level. Sagittal and coronal r eformats were then constructed. For radiation dose reduction, the following was used: automated exp osure control, adjustment of mA and/or kV according to patient size. COMPARISON: None. FINDINGS: Image quality: Excellent. Bones: No fractures or dislocations. Cystic changes of odontoid process is most likely related to s evere atlantoaxial joint degeneration. There is grade 1 anterolisthesis of C3 on C4. Degenerative dis c disease is present, [id number] at C5-C6 and C6-C7. Bilateral facet arthropathy, severe at C 2-C3 and C3-C4 on the left, and C6-C4 and C4-C5 on the right. Visualized superior ribs are intact. Soft tissues: Prevertebral soft tissues are normal in thickness. No paravertebral hematomas. No ap ical pneumothoraces. There are atherosclerotic calcifications of carotid arteries bilaterally. Mucosa l thickening in x-ray sinuses bilaterally. There is a small air-fluid level in the left transverse si nus. Please see separate facial bone CT report for detail. IMPRESSION: 1. No cervical spine fractures. 2. 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 3. Severe atlantoaxial joint degeneration. 4. Bilateral carotid artery calcifications. Reviewed by: Venancio Villalpando MD on 03/28/2021 12:58 PM PDT Approved by: Venancio Villalpando MD on 03/28/2021 12:58 PM PDT Station ID: [id number]
--- NOTE | 2021-03-28 13:05 | CT Report ---
PROCEDURE: HEAD WO INDICATIONS: GLF; nasal bleed TECHNIQUE: Noncontrast 4.5 mm thick angled axial sections acquired from the foramen magnum to the vertex. For r adiation dose reduction, the following was used: automated exposure control, adjustment of mA and/or kV according to patient size. COMPARISON: Head CT without contrast, 11/14/2018. FINDINGS: Image quality: Excellent. CSF spaces: Basal cisterns are patent. No extra-axial fluid collections. Ventricles are normal in size and shape. Brain: No midline shift. No intracranial masses or hemorrhage. Moderate cerebral volume loss and pe riventricular white matter chronic small vessel ischemic changes are noted. Skull and face: Calvarium and visualized facial bones are intact, without suspicious lesions. Left frontal and periorbital soft tissue contusion. Sinuses: There is mucosal thickening in ethmoid and maxillary sinuses bilaterally. There is an air-fl uid level in the left maxilla sinus. IMPRESSION: 1. No acute intracranial abnormalities. No intracranial bleed or skull fracture. 2. Cerebral volume loss and periventricular matter chronic small vessel treatment changes. 3. Bilateral ethmoid and maxillary sinus mucosal thickening and an air-fluid level in the left maxill pauline sinus. Reviewed by: Venancio Villalpando MD on 03/28/2021 1:04 PM PDT Approved by: Venancio Villalpando MD on 03/28/2021 1:04 PM PDT Station ID: [id number]
--- NOTE | 2021-03-28 13:14 | CT Report ---
PROCEDURE: MAXILLOFACIAL WO INDICATIONS: Ground-level fall TECHNIQUE: Noncontrast 1.5 mm thick axial images acquired from the mandible through the frontal sinuses, with co christopher and sagittal reformatting. For radiation dose reduction, the following was used: automated ex posure control, adjustment of mA and/or kV according to patient size. COMPARISON: None. FINDINGS: Image quality: Excellent. Comminuted bilateral nasal bone fractures, mildly displaced bilaterally. Displaced and comminuted fra cture of the bony nasal septum. Extensive hemorrhage and aerated secretions in the nasal cavities and ethmoid air cells related to the fractures. Small volume fluid in the left maxillary sinus. Orbital arteaga and laminated appreciated are intact. Pterygoid plates intact. Maxilla and mandible are intact. Remaining facial osseous structures demonstrate no acute finding. IMPRESSION: Comminuted and displaced fractures of the bilateral nasal bones as well as comminuted and displaced f ractures of the bony nasal septum. Reviewed by: Eliezer Mackenzie MD on 03/28/2021 1:13 PM PDT Approved by: Eliezer Mackenzie MD on 03/28/2021 1:13 PM PDT Station ID: [id number]
== END 2021-03-28 14:11 | disposition home or self-care (01) ==
LOC: EDUNIT# → ED 11:56
DX: S02.2XXB Fracture of nasal bones, initial encounter for open fracture (principal); W01.0XXA Fall on same level from slipping, tripping and stumbling without subsequent striking against object, initial encounter; Y93.89 Activity, other specified; Y92.000 Kitchen of unspecified non-institutional (private) residence as the place of occurrence of the external cause; Z79.82 Long term (current) use of aspirin
CPT/HCPCS: 36415; 80048; 85027; 99283; 99284

== ENCOUNTER 2021-04-03 09:45 | Inpatient (IN) | payer MEDICARE, OTHER ==
[2021-04-03] MEDS ORDERED: OXYMETAZOLINE HCL 100 SPRAYS BOTTLE NAS STA (10:23)
[2021-04-03 11:11] LABS: BASOPHILS # (AUTO) 0.1 10^3/uL (0.0-0.1); BASOPHILS % (AUTO) 1.1 %; EOSINOPHILS # (AUTO) 0.3 10^3/uL (0.0-0.7); EOSINOPHILS % (AUTO) 4.4 %; HCT - HEMATOCRIT 28.7 % (42.0-52.0); HGB - HEMOGLOBIN 10.8 g/dL (14.0-18.0); LYMPHOCYTES # (AUTO) 1.4 10^3/uL (1.5-3.5); LYMPHOCYTES % (AUTO) 22.8 %; MEAN CORPUSCULAR HGB CONC 37.6 g/dL (32.0-36.0); MEAN CORPUSCULAR VOLUME 92.9 fL (80.0-94.0); MONOCYTES # (AUTO) 0.7 10^3/uL (0.0-1.0); MONOCYTES % (AUTO) 11.5 %; NEUTROPHILS # (AUTO) 3.7 10^3/uL (1.5-6.6); NEUTROPHILS % (AUTO) 59.7 %; PLT - PLATELET COUNT 165 10^3/uL (130-450); RED BLOOD COUNT 3.09 10^6/uL (4.70-6.10); RED CELL DISTRIBUTION WIDTH 12.4 % (12.0-15.0); WHITE BLOOD COUNT 6.2 x10^3/uL (4.8-10.8)
[2021-04-03 11:19] LABS: INR 1.2 (0.8-1.2); PT - PROTHROMBIN TIME 13.3 secs (9.9-12.6)
[2021-04-03 11:28] LABS: ALBUMIN/GLOBULIN RATIO 1.5 (1.0-2.2); BILIRUBIN,TOTAL 1.1 mg/dL (0.2-1.0); CALCIUM 8.9 mg/dL (8.5-10.3); CREATININE 0.6 mg/dL (0.6-1.2); POTASSIUM 4.3 mmol/L (3.5-5.0); TOTAL PROTEIN 6.6 g/dL (6.7-8.2)
[2021-04-03] MEDS ORDERED: SODIUM CHLORIDE 0.9% 1,000 ML IV STA (12:20)
--- NOTE | 2021-04-03 12:23 | ED Physician Documentation ---
PD HPI HEENT - Stated complaint Stated Complaint: NOSE BLEED - Chief complaint Chief Complaint: Heent - History obtained from History obtained from: Patient, Family - History of Present Illness Timing - onset: How many days ago (6) Timing - duration: Days (6) Timing - details: Abrupt onset, Still present Location: Nose Improves: Other (clamp) Associated symptoms: Congestion. No: Fever Similar symptoms before: Diagnosis (epistaxis) Recently seen: Emergency Dept - Additional information Additional information: 75-year-old male tripped over a rolled up piece of carpet 6 days ago and fell flat onto his face. He did not have loss of consciousness he was seen in the emergency department that day with a complicated nasal bone fracture. He had some mild bleeding at the time and he was instructed to not blow his nose and he blew his nose 3 days ago and started having an issue with bleeding on and off. He has been unable to control bleeding since 830 this morning. Patient indica adele that he is otherwise been well he has consumed his usual 1-2 beers per night and is taking his medications and otherwise does not feel ill. He does have a past history of having seizure related to hyponatremia. He has a history of intermittent hyponatremia. Review of Systems Constitutional: denies: Fever Eyes: denies: Decreased vision Ears: denies: Ear pain Nose: reports: Epistaxis, Other (Swelling and pain associated with fracture) Throat: denies: Dental pain / toothache, Sore throat Cardiac: denies: Chest pain / pressure, Palpitations Respiratory: denies: Dyspnea, Cough GI: denies: Abdominal Pain, Nausea, Vomiting, Constipation, Diarrhea : denies: Dysuria, Frequency Skin: denies: Rash Musculoskeletal: denies: Neck pain, Back pain, Extremity pain Neurologic: reports: Head injury. denies: Generalized weakness, Focal weakness, Numbness, Syncope, Seizure, Confused, Altered mental status, Headache, LOC PD PAST MEDICAL HISTORY - Past Medical History Cardiovascular: Hypertension, Coronary artery disease Respiratory: None Endocrine/Autoimmune: None GI: GERD, Ulcers : None HEENT: None, Chronic hearing loss Psych: None Musculoskeletal: Gout Derm: None - Past Surgical History General: Colonoscopy, EGD Cardiovascular: Vascular surgery, Angioplasty - Present Medications Home Medications: Ambulatory Orders Medication Instructions Recorded Confirmed Atenolol 1 tab PO BID 02/21/15 08/16/15 Losartan [Cozaar] 100 mg PO DAILY 02/21/15 08/16/15 Simvastatin 1 tab PO DAILY 02/21/15 08/16/15 Omeprazole 40 mg PO BID 08/16/15 08/16/15 cephALEXin [Keflex] 500 mg PO Q6H #28 cap 03/28/21 Aspirin [Aspirin EC] 81 mg PO DAILY 04/03/21 Atorvastatin Calcium 40 mg PO QPM 04/03/21 Clopidogrel [Plavix] 75 mg PO DAILY 04/03/21 carvediloL [Coreg] 12.5 mg PO BID 04/03/21 metFORMIN [Glucophage] 1,000 mg PO BID 04/03/21 - Allergies Allergies/Adverse Reactions: Allergies Allergy/AdvReac Type Severity Reaction Status Date / Time Penicillins Allergy Nausea Verified 04/03/21 09:59 tetanus toxoid, adsorbed Allergy Cramps Verified 04/03/21 09:59 - Social History Does the pt smoke?: No Smoking Status: Never smoker PD ED PE NORMAL - Vitals Vital signs reviewed: Yes - General General: Alert and oriented X 3, Well developed/nourished (Hypertensive), Other (Patient has ecchymosis to his mid face with some swelling and bleeding from the right nares. ) - HEENT HEENT: PERRL, EOMI, Other (Facial contusion and abrasion as above to the midface with bleeding from the right nares and a large clot in the right nares. 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), No motor deficit, No sensory deficit, Normal speech Eye Opening: Spontaneous Motor: Obeys Commands Verbal: Oriented GCS Score: 15 - Psych Psych: Normal mood, Normal affect Results - Vitals Vitals: Vital Signs - 24 hr 04/03/21 04/03/21 04/03/21 09:51 13:00 14:07 Temperature 36.3 C L Heart Rate 74 76 76 Respiratory 16 12 11 L Rate Blood Pressure 153/74 H 155/76 H 150/75 H O2 Saturation 98 98 100 Oxygen O2 Source Room air - Labs Labs: Laboratory Tests 04/03/21 04/03/21 04/03/21 11:06 11:06 11:06 WBC 6.2 RBC 3.09 L Hgb 10.8 L Hct 28.7 L MCV 92.9 MCH 35.0 H MCHC 37.6 H RDW 12.4 Plt Count 165 MPV 8.0 Neut # (Auto) 3.7 Lymph # (Auto) 1.4 L [place] # (Auto) 0.7 Eos # (Auto) 0.3 Baso # (Auto) 0.1 Absolute Nucleated RBC 0.00 Nucleated RBC % 0.0 PT 13.3 H INR 1.2 Sodium 119 L* Potassium 4.3 Chloride 89 L Carbon Dioxide 22 Anion Gap 8.0 BUN 11 Creatinine 0.6 Estimated GFR (MDRD) 132 Glucose 144 H Calcium 8.9 Total Bilirubin 1.1 H AST 20 ALT 10 Alkaline Phosphatase 31 L Total Protein 6.6 L Albumin 4.0 Globulin 2.6 Albumin/Globulin Ratio 1.5 Lipase 29 Nasal Adenovirus (PCR) Nasal B. parapertussis DNA (PCR) Nasal Coronavir 229E PCR Nasal Coronavir HKU1 PCR Nasal Coronavir NL63 PCR Nasal Coronavir OC43 PCR Nasal Enterovir/Rhinovir PCR Nasal Influenza B PCR Nasal Influenza A PCR Nasal Parainfluen 1 PCR Nasal Parainfluen 2 PCR Nasal Parainfluen 3 PCR Nasal Parainfluen 4 PCR Nasal RSV (PCR) Nasal B.pertussis DNA PCR Nasal C.pneumoniae (PCR) Joey Human Metapneumo PCR Nasal M.pneumoniae (PCR) Nasal SARS-CoV-2 (PCR) 04/03/21 04/03/21 11:06 12:37 WBC RBC Hgb Hct MCV MCH MCHC RDW Plt Count MPV Neut # (Auto) Lymph # (Auto) [place] # (Auto) Eos # (Auto) Baso # (Auto) Absolute Nucleated RBC Nucleated RBC % PT INR Sodium 122 L Potassium Chloride Carbon Dioxide Anion Gap BUN Creatinine Estimated GFR (MDRD) Glucose Calcium Total Bilirubin AST ALT Alkaline Phosphatase Total Protein Albumin Globulin Albumin/Globulin Ratio Lipase Nasal Adenovirus (PCR) NOT DETECTED Nasal B. parapertussis DNA (PCR) NOT DETECTED Nasal Coronavir 229E PCR NOT DETECTED Nasal Coronavir HKU1 PCR NOT DETECTED Nasal Coronavir NL63 PCR NOT DETECTED Nasal Coronavir OC43 PCR NOT DETECTED Nasal Enterovir/Rhinovir PCR NOT DETECTED Nasal Influenza B PCR NOT DETECTED Nasal Influenza A PCR NOT DETECTED Nasal Parainfluen 1 PCR NOT DETECTED Nasal Parainfluen 2 PCR NOT DETECTED Nasal Parainfluen 3 PCR NOT DETECTED Nasal Parainfluen 4 PCR NOT DETECTED Nasal RSV (PCR) NOT DETECTED Nasal B.pertussis DNA PCR NOT DETECTED Nasal C.pneumoniae (PCR) NOT DETECTED Joey Human Metapneumo PCR NOT DETECTED Nasal M.pneumoniae (PCR) NOT DETECTED Nasal SARS-CoV-2 (PCR) NOT DETECTED Procedures - Epistaxis Site: Right, Anterior Preparation: Clots removed, Afrin, Clamp / pressure applied Treatment: Anterior rhinorocket Other: Pt tolerated well, Referred to ENT, Other (There is some continuous oozing from the right nares that is much improved from when the patient arrived.) PD MEDICAL DECISION MAKING - ED course Complexity details: reviewed old records, reviewed results, re-evaluated patient, considered differential, d/w patient, d/w family ED course: 75-year-old male with a history of seizure from hyponatremia comes to the emergency department today with a chief complaint of a nosebleed from the right nares after facial trauma 6 days ago. He comes in with significant bleeding and a pulsatile bleed. Afrin was instilled in nasal clamp was placed and a 5.5 cm Rhino Rocket was placed with improvement in the bleeding. I consulted Dr. Polanco ENT in [place] regarding the patient's nosebleed and he recommended we keep the packing in place for 3 days and follow-up at that time. The patient continued to have some oozing we checked his blood counts found that he was about 2 g down from his baseline on his hemoglobin and his electrolytes were abnormal with a critically low sodium. The patient has had seizure related to hyponatremia previously. At this point we have reached out to [facility] for transfer the patient to their medical service for treatment of the hyponatremia and for evaluation by ENT. The patient's nosebleed does appear to have stabilized. He is administered a liter of saline intravenously and a gram of Ancef. He has been on Keflex and his last dose was 6 AM. His bleeding is well controlled and a need to transfer for ENT consultation is unwarranted. We have contacted Dr. Blackman and she is willing to care for the patient in the hospital for hyponatremia. The patient's has made an appointment with Dr. Polanco's office for Friday. Departure - Departure Disposition: [facility] DC/Yoel Clinical Impression: Hyponatremia, Epistaxis due to trauma Condition: Stable Discharge Date/Time: 04/03/21 15:56
[2021-04-03] MEDS ORDERED: ceFAZolin 1 GM in SODIUM CHLORIDE 0.9% MINIBAG 100 ML IV STA (12:40)
[2021-04-03 13:46] LABS: CORONAVIRUS 229E-RESP PCR NOT DETECTED; CORONAVIRUS HKU1-RESP PCR NOT DETECTED; CORONAVIRUS NL63-RESP PCR NOT DETECTED; CORONAVIRUS OC43-RESP PCR NOT DETECTED; HUMAN METAPNEUMOVIRUS NOT DETECTED; INFLUENZA A- RESP PCR PANEL NOT DETECTED; RHINOVIRUS/ENTEROVIRUS NOT DETECTED; SARS-CoV-2 -RESP PCR PANEL NOT DETECTED
[2021-04-03 13:47] LABS: B. PARAPERTUSSIS- RESP PCR PAN NOT DETECTED; B. PERTUSSIS- RESP PCR PANEL NOT DETECTED; C. PNEUMONIAE- RESP PCR PANEL NOT DETECTED; INFLUENZA B - RESP PCR PANEL NOT DETECTED; M. PNEUMONIAE- RESP PCR PANEL NOT DETECTED; PARAINFLUENZA VIRUS 1 NOT DETECTED; PARAINFLUENZA VIRUS 2 NOT DETECTED; PARAINFLUENZA VIRUS 3 NOT DETECTED; PARAINFLUENZA VIRUS 4 NOT DETECTED; RSV- RESP PCR PANEL NOT DETECTED
[2021-04-03] MEDS ORDERED: ONDANSETRON 4 MG/2 ML VIAL IVP PRN (14:43)
[2021-04-03] MEDS ORDERED: SODIUM CHLORIDE FLUSH 0.9% 10 ML SYRINGE IVP PRN (14:43)
[2021-04-03] MEDS ORDERED: ACETAMINOPHEN 325 MG TABLET PO PRN (14:43)
--- NOTE | 2021-04-03 14:55 | HISTORY & PHYSICAL EXAMINATION ---
Chief Complaint - Chief Complaint Chief Complaint: lower sodium, fall with nasal bleeding History of Present Illness - Admitted From Admitted From:: ER - History Obtained From Records Reviewed: [facility] History obtained from: pt and his at the bedside Exam Limitations: none - History of Present Illness HPI Comment/Other: This is a 75-year-old male With a past medical history significant for hypertension, CAD, Stroke, GERD, Chronic hearing loss, hyponatremia, once seizure happened at 2019 when he had lower sodium level, Who present to ER for nose bleeding. 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 He denied loss of Consciousness at that time. But The fall leaded to pt had comminuted and displaced bilateral nasal bone fractures as well as nasal septal fractures. CT of the head reveal without Acute intracranial abnormalities. The laceration of his nose was glued at that time. Pt was instructed to not blow his nose. Pt report Incidentally he blew his nose 3 days ago, then had bleeding. pt report his nose bleeding was unable to control since today morning 830. Then he present to ER to seek help. Pt was treated by ER provider and his nose bleeding seem stable now. ER provider also consulted Dr. Polanco ENT in [place] about the patient's nosebleed. ENT recommended we keep the nose packing in place for 3 days then follow-up with his office. Patient denies chest pain, headache, fever, chill, abdominal pain, shortness of breathing. Routine laboratory tests that show patient had sodium 119, Hemoglobin 10.8. In the ER, patient is afebrile, otherwise patient is hemodynamic stable. discussed the care goal with the patient, patient hope to have DNR. History - Past Medical History Cardiovascular: reports: Hypertension, Coronary artery disease Respiratory: reports: None Endocrine/Autoimmune: reports: None GI: reports: GERD, Ulcers : reports: None HEENT: reports: None, Chronic hearing loss Psych: reports: None Musculoskeletal: reports: Gout Derm: reports: None MRSA Hx?: No - Past Surgical History General: reports: Colonoscopy, EGD Cardiovascular: reports: Vascular surgery, Angioplasty - Family & Social History Family History: Mother: , Father: Family History Comment/Other: Patient reported his father at age 71 with medical history of ALS and myocardial ischemia. His mother at age 94 with hx of CAD Social History Notes: He denies history of cigarette smoking, but he report he daily drinks beer, Denies drug issue. Meds/Allgy - Home Medications Home Medications: Ambulatory Orders Medication Instructions Recorded Confirmed Atenolol 1 tab PO BID 02/21/15 08/16/15 Losartan [Cozaar] 100 mg PO DAILY 02/21/15 08/16/15 Simvastatin 1 tab PO DAILY 02/21/15 08/16/15 Omeprazole 40 mg PO BID 08/16/15 08/16/15 cephALEXin [Keflex] 500 mg PO Q6H #28 cap 03/28/21 Aspirin [Aspirin EC] 81 mg PO DAILY 04/03/21 Atorvastatin Calcium 40 mg PO QPM 04/03/21 Clopidogrel [Plavix] 75 mg PO DAILY 04/03/21 carvediloL [Coreg] 12.5 mg PO BID 04/03/21 metFORMIN [Glucophage] 1,000 mg PO BID 04/03/21 - Allergies Allergies/Adverse Reactions: Allergies Allergy/AdvReac Type Severity Reaction Status Date / Time Penicillins Allergy Nausea Verified 04/03/21 09:59 tetanus toxoid, adsorbed Allergy Cramps Verified 04/03/21 09:59 Review of Systems - Constitutional Constitutional: denies: Fever, Chills - Eyes Eyes: denies: Pain - Ears, Nose & Throat Ears, Nose & Throat: reports: Nosebleeds. denies: Ear pain - Cardiovascular Cariovascular: denies: Chest pain, Syncope, Exertional dyspnea, Decr. exercise tolerance - Respiratory Respiratory: denies: Cough, Hemoptysis, SOB at rest, SOB with exertion - Gastrointestinal Gastrointestinal: denies: Abdominal pain, Diarrhea, Nausea, Vomiting - Genitourinary Genitourinary: denies: Dysuria - Musculoskeletal Musculoskeletal: denies: Muscle pain - Integumentary Integumentary: denies: Rash - Neurological Neurological: denies: Focal weakness, Headache, Dizziness, Numbness, Abnormal gait, Seizures, Incoordination, Slurred speech - Psychiatric Psychiatric: denies: Depression Exam - Vital Signs Vital Signs: Vital Signs x48h Temp Pulse Resp BP Pulse Ox 04/03/21 14:07 76 11 L 150/75 H 100 04/03/21 13:00 76 12 155/76 H 98 04/03/21 09:51 36.3 C L 74 16 153/74 H 98 - Physical Exam General Appearance: positive: No acute distress, Alert. negative: Lethargic Eyes Bilateral: positive: Normal inspection, PERRL, No lid inflammation ENT: positive: Other (right nose was packed with rhino rocket, no acute bleedin g). negative: Purulent nasal drainage, Pharyngeal erythema, Oral lesions Neck: positive: Nml inspection, Trachea midline. negative: Thyromegaly, Tracheal deviation Respiratory: positive: Chest non-tender, No respiratory distress. negative: Wheezes Cardiovascular: positive: Regular rate & rhythm, No murmur. negative: Tac hycardia, Bradycardia, Systolic murmur, Diastolic murmur Peripheral Pulses: positive: 2+ Abdomen: positive: Non-tender, Nml bowel sounds, No distention. negative: Tenderness Back: positive: Nml inspection Skin: positive: Color nml, Warm, Dry. negative: Cyanosis Extremities: positive: Non-tender, Full ROM, Nml appearance. negative: Calf tenderness Neurologic/Psychiatric: positive: Oriented x3, Motor nml, Sensation nml, Mood/affect nml. negative: Weakness, Sensory loss, Facial droop, Slurred/abnml speech, Depressed mood/affect Sepsis Event Note (H) - Evaluation Current Stage of Sepsis: Ruled out Conclusion/Plan - Problem List (1) Epistaxis due to trauma Conclusion/Plan: it seem pt's nose bleeding stopped now. We will continue hold patient home medication aspirin, Plavix. Patient may follow-up with ENT after discharge as outpatient. We will continue H&H monitor hemoglobin, Close monitor patient if any nose bleeding (2) Hyponatremia Conclusion/Plan: Patient has a sodium 119 now. History of chronic hyponatremia. Patient also had once seizure due to his hyponatremia in the past. Patient hyponatremia is likely due to hypovolemia and hyponatremia. pt was already Given 1 L normal saline in the ER. we continue gently IV of NS for pt, Continue monitor sodium, slowly increase his sodium concentration, and neuro check (3) Hx of seizure disorder Conclusion/Plan: Patient has no home seizure medication, patient reported he only had one time of seizure at 2019 due to hyponatremia. We will have patient on seizure precaution, and Ativan as needed for seizure. slowly and gradually increase of sodium, and neuro check. (4) Diabetes mellitus Conclusion/Plan: History of diabetic, he take Metformin, no insulin At home. Check A1c, start with sliding scale, ACH S to check glucose, hypoglycemia protocol (5) Hx of stroke without residual deficits Conclusion/Plan: Patient reported he had hx of stroke. pt denies acute focal neuro deficits now. We will hold the patient's home meds aspirin and Plavix due to nose bleeding now, continue Lipitor. (6) HTN (hypertension) Conclusion/Plan: Stable, will resume home BP meds as confirmed (7) Hx of coronary artery disease Conclusion/Plan: Patient denies chest pain, denies loss of consciousness when he had a mechanical fall. Will resume patient home medication Coreg, hold Aspirin, Plavix now due to nose bleeding, Continue telemetry and vital signs monitor. - Lab Results Fish Bones: 04/03/21 11:06 04/03/21 11:06 Core Measures - Anticipated LOS I expect patient to be DC'd or transferred within 96 hours.: Yes - DVT/VTE - Prophylaxis VTE/DVT Device ordered at admit?: Yes VTE/DVT Prophylaxis med ordered at admit?: No
[2021-04-03] MEDS: SODIUM CHLORIDE 0.9% 1,000 ML IV SCH (16:12)
[2021-04-03] MEDS: SODIUM CHLORIDE FLUSH 0.9% 10 ML SYRINGE IVP SCH (16:13)
[2021-04-03] MEDS ORDERED: LORazepam 2 MG/ML VIAL IVP PRN (16:36)
--- NOTE | 2021-04-03 16:55 | PHARMACY PROGRESS NOTE ---
- Best Possible Medication History Admit Date and Time: 04/03/21 1443 Processed by: Pharmacy Medication History completed: Yes Patient Interview: Completed (PATIENT ABLE TO CONFIRM HOME MEDICATIONS) As the person ultimately responsible for medication therapy, providers are able to order a medication from an existing home medication list in [facility] via the "Reconcile Routine" prior to Confirmation of that medication by lab support technician. Such practice is discouraged except when the physician, in their clinical judgment, deems that a medical need exists for a medication without regard to previous use.
[2021-04-03] MEDS: INSULIN ASPART 300 UNIT/3 ML PEN SUBQ SCH ×2 (17:35→20:32)
[2021-04-03] MEDS: PRENATAL VITAMIN TABLET PO SCH (18:00)
[2021-04-03] MEDS: THIAMINE 100 MG TABLET PO SCH (18:01)
[2021-04-03] MEDS: LOSARTAN 50 MG TABLET PO SCH (18:01)
[2021-04-03] MEDS: carvediloL 12.5 MG TABLET PO SCH (20:32)
[2021-04-03] MEDS ORDERED: ATORVASTATIN 40 MG TABLET PO SCH (21:00)
[2021-04-03 21:17] LABS: HCT - HEMATOCRIT 26.8 % (42.0-52.0); HGB - HEMOGLOBIN 10.1 g/dL (14.0-18.0)
[2021-04-04] MEDS: SODIUM CHLORIDE FLUSH 0.9% 10 ML SYRINGE IVP SCH ×2 (00:26→08:38)
[2021-04-04] MEDS: SODIUM CHLORIDE 0.9% 1,000 ML IV SCH (02:52)
[2021-04-04 06:16] LABS: CALCIUM 8.7 mg/dL (8.5-10.3); CREATININE 0.5 mg/dL (0.6-1.2); POTASSIUM 3.8 mmol/L (3.5-5.0)
[2021-04-04 06:44] LABS: BASOPHILS # (AUTO) 0.1 10^3/uL (0.0-0.1); BASOPHILS % (AUTO) 1.5 %; EOSINOPHILS # (AUTO) 0.2 10^3/uL (0.0-0.7); HCT - HEMATOCRIT 27.6 % (42.0-52.0); LYMPHOCYTES # (AUTO) 1.8 10^3/uL (1.5-3.5); LYMPHOCYTES % (AUTO) 32.1 %; MEAN CORPUSCULAR HEMOGLOBIN 34.8 pg (27.0-31.0); MEAN CORPUSCULAR HGB CONC 36.2 g/dL (32.0-36.0); MEAN CORPUSCULAR VOLUME 96.2 fL (80.0-94.0); MEAN PLATELET VOLUME 8.3 fL (7.4-11.4); MONOCYTES # (AUTO) 0.8 10^3/uL (0.0-1.0); MONOCYTES % (AUTO) 14.6 %; NEUTROPHILS # (AUTO) 2.6 10^3/uL (1.5-6.6); NEUTROPHILS % (AUTO) 47.4 %; PLT - PLATELET COUNT 182 10^3/uL (130-450); RED BLOOD COUNT 2.87 10^6/uL (4.70-6.10); RED CELL DISTRIBUTION WIDTH 12.7 % (12.0-15.0); WHITE BLOOD COUNT 5.5 x10^3/uL (4.8-10.8)
[2021-04-04] MEDS ORDERED: PANTOPRAZOLE 40 MG TABLET PO SCH (07:00)
[2021-04-04] MEDS ORDERED: SODIUM CHLORIDE 0.9% 1,000 ML IV SCH (08:17)
[2021-04-04] MEDS: INSULIN ASPART 300 UNIT/3 ML PEN SUBQ SCH ×2 (08:35→11:32)
[2021-04-04] MEDS: PRENATAL VITAMIN TABLET PO SCH (08:36)
[2021-04-04] MEDS: LOSARTAN 50 MG TABLET PO SCH (08:37)
[2021-04-04] MEDS: THIAMINE 100 MG TABLET PO SCH (08:37)
[2021-04-04] MEDS: carvediloL 12.5 MG TABLET PO SCH (08:37)
--- NOTE | 2021-04-04 08:45 | XRAY Report ---
PROCEDURE: Chest 1 View X-Ray INDICATIONS: sob TECHNIQUE: One view of the chest was acquired. COMPARISON: None available FINDINGS: Surgical changes and devices: None. Lungs and pleura: No pleural effusions or pneumothorax. Lungs are clear. Mediastinum: Mediastinal contours appear normal. Heart size is normal. Bones and chest wall: No suspicious bony lesions. Degenerative changes involving the left shoulder. Overlying soft tissues appear unremarkable. IMPRESSION: No acute cardiopulmonary disease. Reviewed by: Sepideh Anglin MD on 04/04/2021 8:43 AM PDT Approved by: Sepideh Anglin MD on 04/04/2021 8:43 AM PDT Station ID: [id number]
[2021-04-04 11:48] LABS: ESTIMATED AVERAGE GLUCOSE 114 mg/dL (70-100); HEMOGLOBIN A1c% 5.6 % (4.27-6.07)
--- NOTE | 2021-04-04 14:43 | Discharge Plan ---
Discharge Plan Problem Reviewed?: Yes Disposition: Home, Self Care Condition: Stable Diet: Regular Activity Restrictions: Activity as Tolerated Shower Restrictions: No (fall precaution) Instruction Topics: Nosebleed, Hyponatremia Dc, Falls Prevent Home, Falls Risks Prevent, Falls Preventing Health Concerns: nose bleed, hyponatremia Plan of Treatment: you have no more nose bleeding, your HGB is stable as well. Please do not blew your nose. You may followup with your ENT on this Friday. Your home Aspirin is holding now until you see your ENT to evaluate your nose condition. Your serum sodium is 126. you are totally asymptomatic. you have hx of hyponatremia. You may followup with your PCP on one week to recheck your sodium, you may followup with net software developer as out-pt. Care Goals: Stabilization and improvement of your medical conditions Assessment: Discussed the care Plan with you, Answered your questions, you understood. Additional Instructions or Follow Up instructions: You may follow-up with your PCP in 1 week, follow-up with ENT on this Friday04/06/21. Should your symptoms Return or worsen, nose bleed again, You may present to ER or call 911 for help No Smoking: If you smoke, Please STOP! Call for help. Follow-up with: John Polanco MD [Physician No Access] -
--- NOTE | 2021-04-04 14:59 | DISCHARGE SUMMARY ---
Discharge Summary Admit Date: 04/03/21 Discharge Date: 04/04/21 Discharging Provider: Alfredo Hayes Primary Care Provider: Dr. Laurie Winchester Condition at Discharge: Stable Discharge Disposition: 01 Home, Self Care Discharge Facility Name: home - DIAGNOSES Discharge Diagnoses with Status of Each Condition: (1) Epistaxis due to trauma resolved. pt has no more nose bleeding. HGB is stable. Patient may follow-up with ENT on this Friday. Patient's home baby aspirin is on hold now until patient is evaluated by his ENT on this Friday. (2) Hyponatremia pt's sodium is 126 now. Patient has history of hyponatremia. Patient is totally asymptomatic. pt has no seizure at hospital. Patient may follow-up with his PCP in 1 week to recheck sodium, patient may follow-up with sand buffer as outpatient. (3) Hx of seizure disorder none seizure at hospital. pt report he just had once seizure in the past. (4) Diabetes mellitus stable, resume home meds (5) Hx of stroke without residual deficits stable, resume home meds except aspirin until pt is evaluated by his ENT on this Friday. (6) HTN (hypertension) Stable, resume home meds (7) Hx of coronary artery disease stable, resume home meds except aspirin until pt is evaluated by his ENT on this Friday. - HPI History of Present Illness: This is a 75-year-old male With a past medical history significant for hypertension, CAD, Stroke, GERD, Chronic hearing loss, hyponatremia, once seizure happened at 2019 when he had lower sodium level, Who present to ER for nose bleeding. 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 He denied loss of Consciousness at that time. But The fall leaded to pt had comminuted and displaced bilateral n geoff bone fractures as well as nasal septal fractures. CT of the head reveal without Acute intracranial abnormalities. The laceration of his nose was glued at that time. Pt was instructed to not blow his nose. Pt report Incidentally he blew his nose 3 days ago, then had bleeding. pt report his nose bleeding was unable to control since today morning 830. Then he present to ER to seek help. Pt was treated by ER provider and his nose bleeding seem stable now. ER provider also consulted Dr. Polanco ENT in [place] about the patient's nosebleed. ENT recommended we keep the nose packing in place for 3 days then follow-up with his office. Patient denies chest pain, headache, fever, chill, abdominal pain, shortness of breathing. Routine laboratory tests that show patient had sodium 119, Hemoglobin 10.8. In the ER, patient is afebrile, otherwise patient is hemodynamic stable. discussed the care goal with the patient, patient hope to have DNR. - ALLERGIES Allergies/Adverse Reactions: Allergies Allergy/AdvReac Type Severity Reaction Status Date / Time Penicillins Allergy Nausea Verified 04/03/21 09:59 tetanus toxoid, adsorbed Allergy Cramps Verified 04/03/21 09:59 - MEDICATIONS Home Medications: Ambulatory Orders Medication Instructions Recorded Confirmed Losartan [Cozaar] 100 mg PO DAILY 02/21/15 04/03/21 Atorvastatin Calcium 40 mg PO QPM 04/03/21 04/03/21 Famotidine [Pepcid] 20 mg PO BID 04/03/21 04/03/21 carvediloL [Coreg] 12.5 mg PO BID 04/03/21 04/03/21 metFORMIN [Glucophage] 1,000 mg PO BID 04/03/21 04/03/21 - PHYSICAL EXAM AT DISCHARGE General Appearance: positive: No acute distress, Alert. negative: Lethargic Eyes Bilateral: positive: Normal inspection, PERRL, No lid inflammation ENT: positive: ENT inspection nml, No signs of dehydration, Other (pt's right nose Rhino Rocket was removed by pt accidently. there is no bleeding on pt's nose). negative: Purulent nasal drainage, Oral lesions Neck: positive: Nml inspection, Trachea midline. negative: Thyromegaly, Tracheal deviation Respiratory: positive: Chest non-tender, No respiratory distress. negative: Wheezes, Rales Cardiovascular: positive: Regular rate & rhythm, No murmur. negative: Tachycardia, Bradycardia, Systolic murmur, Diastolic murmur Peripheral Pulses: positive: 2+ Abdomen: positive: Non-tender, Nml bowel sounds, No distention. negative: Tenderness Back: positive: Nml inspection Skin: positive: Color nml, Warm, Dry. negative: Cyanosis Extremities: positive: Non-tender, Full ROM, Nml appearance. negative: Calf tenderness Neurologic/Psychiatric: positive: Oriented x3, Motor nml, Sensation nml, Mood/affect nml. negative: Weakness, Sensory loss, Facial droop, Slurred/abnml speech, Depressed mood/affect - LABS Result Diagrams: 04/04/21 05:35 04/04/21 14:01 - SEPSIS Current Stage of Sepsis: Ruled out - FOLLOW UP Follow Up: you have no more nose bleeding, your HGB is stable as well. Please do not blew your nose. You may followup with your ENT on this Friday. Your home Aspirin is holding now until you see your ENT to evaluate your nose condition. Your serum sodium is 126. you are totally asymptomatic. you have hx of hyponatremia. You may followup with your PCP on one week to recheck your sodium, you may followup with sand buffer as out-pt. You may follow-up with your PCP in 1 week, follow-up with ENT on this Friday04/06/21. Should your symptoms Return or worsen, nose bleed again, You may present to ER or call 911 for help - TIME SPENT Time Spent in Discharge (Minutes): 30
[2021-04-04 16:07] VITALS: BP 162/77
== END 2021-04-04 16:32 | disposition home or self-care (01) | DRG 151 ==
LOC: ED 09:45 → MS2 14:43
PROVIDERS: ADMIT Nurse Practitioner Gerontology; ATTEND Nurse Practitioner Gerontology
DX: R04.0 Epistaxis (principal); E87.1 Hypo-osmolality and hyponatremia; Z86.73 Personal history of transient ischemic attack (TIA), and cerebral infarction without residual deficits; I10 Essential (primary) hypertension; Z20.822 Contact with and (suspected) exposure to COVID-19; I25.10 Atherosclerotic heart disease of native coronary artery without angina pectoris; E11.9 Type 2 diabetes mellitus without complications; Z79.84 Long term (current) use of oral hypoglycemic drugs; Z79.82 Long term (current) use of aspirin; S02.2XXD Fracture of nasal bones, subsequent encounter for fracture with routine healing; W01.0XXD Fall on same level from slipping, tripping and stumbling without subsequent striking against object, subsequent encounter
CPT/HCPCS: 30901; 36415; 71045; 80048; 80053; 83036; 83690; 84295; 84300; 85014; 85018; 85025; 85610; 87631; 96365; 99284; 99285; A9270; 0202U

== ENCOUNTER 2021-04-09 08:13 | Outpatient (CLI) | payer MEDICARE, OTHER ==
[2021-04-09 12:08] LABS: ESTIMATED AVERAGE GLUCOSE 108 mg/dL (70-100); HEMOGLOBIN A1c% 5.4 % (4.27-6.07)
[2021-04-09 12:10] LABS: BASOPHILS # (AUTO) 0.1 10^3/uL (0.0-0.1); BASOPHILS % (AUTO) 1.5 %; EOSINOPHILS # (AUTO) 0.3 10^3/uL (0.0-0.7); EOSINOPHILS % (AUTO) 8.1 %; HCT - HEMATOCRIT 27.6 % (42.0-52.0); HGB - HEMOGLOBIN 9.7 g/dL (14.0-18.0); LYMPHOCYTES # (AUTO) 1.2 10^3/uL (1.5-3.5); LYMPHOCYTES % (AUTO) 29.5 %; MEAN CORPUSCULAR HEMOGLOBIN 34.4 pg (27.0-31.0); MEAN CORPUSCULAR HGB CONC 35.1 g/dL (32.0-36.0); MEAN CORPUSCULAR VOLUME 97.9 fL (80.0-94.0); MEAN PLATELET VOLUME 8.5 fL (7.4-11.4); MONOCYTES # (AUTO) 0.5 10^3/uL (0.0-1.0); MONOCYTES % (AUTO) 12.6 %; NEUTROPHILS # (AUTO) 1.9 10^3/uL (1.5-6.6); NEUTROPHILS % (AUTO) 47.8 %; PLT - PLATELET COUNT 204 10^3/uL (130-450); RED BLOOD COUNT 2.82 10^6/uL (4.70-6.10); RED CELL DISTRIBUTION WIDTH 13.2 % (12.0-15.0)
[2021-04-09 12:16] LABS: ALBUMIN 4.1 g/dL (3.2-5.5); ALBUMIN/GLOBULIN RATIO 1.6 (1.0-2.2); ALKALINE PHOSPHATASE 34 IU/L (42-121); ALT ALANINE AMINOTRANSFERASE 10 IU/L (10-60); AST ASPARTATE AMINOTRANSFERASE 23 IU/L (10-42); BILIRUBIN,TOTAL 0.7 mg/dL (0.2-1.0); BUN - BLOOD UREA NITROGEN 9 mg/dL (6-20); CALCIUM 9.1 mg/dL (8.5-10.3); CARBON DIOXIDE - CO2 25 mmol/L (21-32); CHLORIDE 98 mmol/L (101-111); CHOL/HDL RATIO 2.1 (<5.0); CHOLESTEROL 120 mg/dL; CREATININE 0.5 mg/dL (0.6-1.2); GAMMA GLUTAMYL TRANSPEPTIDASE 38 IU/L (8-55); GFR - MDRD 163 (>89); GLUCOSE 101 mg/dL (70-100); HDL CHOLESTEROL 57 mg/dL; LDL CHOLESTEROL,CALCULATED 55 mg/dL; POTASSIUM 4.2 mmol/L (3.5-5.0); SODIUM 131 mmol/L (135-145); TOTAL PROTEIN 6.7 g/dL (6.7-8.2); TRIGLYCERIDES 41 mg/dL; VLDL CHOLESTEROL 8 mg/dL
[2021-04-09 18:43] LABS: CREATININE,URINE 49.2 mg/dL; MICROALBUM/CREATININE RATIO,UR 73.2 ug/mg (<30.0); MICROALBUMIN,URINE 3.6 mg/dL (0-300.0)
== END 2021-04-09 23:59 | disposition home or self-care (01) ==
LOC: LAB.WCP 08:13
PROVIDERS: ATTEND Family Medicine
DX: F10.20 Alcohol dependence, uncomplicated (principal); E11.9 Type 2 diabetes mellitus without complications
CPT/HCPCS: 36415; 80053; 80061; 82043; 82570; 82977; 83036; 83721; 85025

== ENCOUNTER 2021-04-23 08:00 | Outpatient (CLI) | payer MEDICARE, OTHER ==
--- NOTE | 2021-04-23 10:20 | XRAY Report ---
PROCEDURE: Ribs w/PA Chest LT INDICATIONS: CONTUSION OF L FRONT WALL OF THORAX TECHNIQUE: 3 views of the left ribs were acquired, along with a single view chest. COMPARISON: None FINDINGS: Surgical changes and devices: None. Bones and chest wall: There are displaced rib fractures of the left third through sixth ribs posterio rly and left sixth and seventh ribs laterally. No suspicious bony lesions. Overlying soft tissues ap pear unremarkable. Lungs and pleura: No pneumothorax. There is blunting of the left costophrenic angle consistent with a small left pleural effusion or hemothorax. Lungs appear clear. Mediastinum: Mediastinal contours appear normal. Heart size is normal. IMPRESSION: 1. Multiple left-sided rib fractures. 2. No pneumothorax. 3. Blunting of the left costophrenic angle consistent with a small left pleural effusion or hemothora x. Reviewed by: Girma Delgadillo on 04/23/2021 10:18 AM [facility] Approved by: Girma Delgadillo on 04/23/2021 10:18 AM [facility] Station ID: [id number]
== END 2021-04-23 23:59 | disposition home or self-care (01) ==
LOC: DI.N 08:00
PROVIDERS: ATTEND Physician Assistant Medical
DX: S22.42XA Multiple fractures of ribs, left side, initial encounter for closed fracture (principal); R91.8 Other nonspecific abnormal finding of lung field

== ENCOUNTER 2021-05-08 08:00 | Outpatient (CLI) | payer MEDICARE, OTHER ==
[2021-05-08 12:32] LABS: CALCIUM 9.2 mg/dL (8.5-10.3); CREATININE 0.6 mg/dL (0.6-1.2); POTASSIUM 4.5 mmol/L (3.5-5.0)
== END 2021-05-08 23:59 | disposition home or self-care (01) ==
LOC: LAB.WCP 08:00
PROVIDERS: ATTEND Family Medicine
DX: I63.9 Cerebral infarction, unspecified (principal)
CPT/HCPCS: 36415; 80048; 84300

== ENCOUNTER 2021-05-10 08:00 | Outpatient (CLI) | payer MEDICARE, OTHER | END 2021-05-10 23:59 | disposition home or self-care (01) | LOC: LAB.WCP 08:00 | PROVIDERS: ATTEND Family Medicine | DX: E87.1 Hypo-osmolality and hyponatremia (principal) | CPT/HCPCS: 36415; 82533 ==

== ENCOUNTER 2021-09-11 07:38 | Outpatient (CLI) | payer MEDICARE, OTHER ==
[2021-09-11 12:21] LABS: BASOPHILS # (AUTO) 0.1 10^3/uL (0.0-0.1); BASOPHILS % (AUTO) 1.1 %; EOSINOPHILS # (AUTO) 0.3 10^3/uL (0.0-0.7); EOSINOPHILS % (AUTO) 6.1 %; HCT - HEMATOCRIT 34.6 % (42.0-52.0); HGB - HEMOGLOBIN 12.3 g/dL (14.0-18.0); LYMPHOCYTES # (AUTO) 1.8 10^3/uL (1.5-3.5); LYMPHOCYTES % (AUTO) 34.9 %; MEAN CORPUSCULAR HEMOGLOBIN 33.9 pg (27.0-31.0); MEAN CORPUSCULAR HGB CONC 35.5 g/dL (32.0-36.0); MEAN CORPUSCULAR VOLUME 95.3 fL (80.0-94.0); MEAN PLATELET VOLUME 8.7 fL (7.4-11.4); MONOCYTES # (AUTO) 0.7 10^3/uL (0.0-1.0); MONOCYTES % (AUTO) 13.6 %; NEUTROPHILS # (AUTO) 2.3 10^3/uL (1.5-6.6); NEUTROPHILS % (AUTO) 44.1 %; PLT - PLATELET COUNT 188 10^3/uL (130-450); RED BLOOD COUNT 3.63 10^6/uL (4.70-6.10); RED CELL DISTRIBUTION WIDTH 13.5 % (12.0-15.0); WHITE BLOOD COUNT 5.2 x10^3/uL (4.8-10.8)
[2021-09-11 12:43] LABS: ALBUMIN/GLOBULIN RATIO 1.5 (1.0-2.2); ALKALINE PHOSPHATASE 35 IU/L (42-121); ALT ALANINE AMINOTRANSFERASE < 10 IU/L (10-60); AST ASPARTATE AMINOTRANSFERASE 18 IU/L (10-42); BILIRUBIN,TOTAL 0.8 mg/dL (0.2-1.0); BUN - BLOOD UREA NITROGEN 8 mg/dL (6-20); CARBON DIOXIDE - CO2 24 mmol/L (21-32); CHLORIDE 103 mmol/L (101-111); CHOL/HDL RATIO 1.9 (<5.0); CHOLESTEROL 141 mg/dL; CREATININE 0.7 mg/dL (0.6-1.2); GFR - MDRD 111 (>89); GLUCOSE 119 mg/dL (70-100); HDL CHOLESTEROL 74 mg/dL; POTASSIUM 4.7 mmol/L (3.5-5.0); SODIUM 135 mmol/L (135-145); TOTAL PROTEIN 6.7 g/dL (6.7-8.2); TRIGLYCERIDES 39 mg/dL
[2021-09-11 13:12] LABS: CREATININE,URINE 64.8 mg/dL; MICROALBUM/CREATININE RATIO,UR 60.2 ug/mg (<30.0); MICROALBUMIN,URINE 3.9 mg/dL (0-300.0)
[2021-09-11 13:39] LABS: ESTIMATED AVERAGE GLUCOSE 123 mg/dL (70-100); HEMOGLOBIN A1c% 5.9 % (4.27-6.07)
== END 2021-09-11 07:39 | disposition home or self-care (01) ==
LOC: LAB.N 07:38
PROVIDERS: ATTEND Family Medicine
DX: E11.9 Type 2 diabetes mellitus without complications (principal)
CPT/HCPCS: 36415; 80053; 80061; 82043; 82570; 83036; 83721; 85025

== ENCOUNTER 2021-12-14 07:06 | Outpatient (CLI) | payer MEDICARE, OTHER ==
[2021-12-14 12:22] LABS: BASOPHILS # (AUTO) 0.1 10^3/uL (0.0-0.1); BASOPHILS % (AUTO) 1.4 %; EOSINOPHILS # (AUTO) 0.3 10^3/uL (0.0-0.7); EOSINOPHILS % (AUTO) 6.6 %; HCT - HEMATOCRIT 32.5 % (42.0-52.0); HGB - HEMOGLOBIN 11.8 g/dL (14.0-18.0); LYMPHOCYTES # (AUTO) 1.6 10^3/uL (1.5-3.5); LYMPHOCYTES % (AUTO) 32.1 %; MEAN CORPUSCULAR HEMOGLOBIN 34.3 pg (27.0-31.0); MEAN CORPUSCULAR HGB CONC 36.3 g/dL (32.0-36.0); MEAN CORPUSCULAR VOLUME 94.5 fL (80.0-94.0); MEAN PLATELET VOLUME 8.4 fL (7.4-11.4); MONOCYTES # (AUTO) 0.6 10^3/uL (0.0-1.0); MONOCYTES % (AUTO) 11.6 %; NEUTROPHILS # (AUTO) 2.4 10^3/uL (1.5-6.6); NEUTROPHILS % (AUTO) 48.1 %; PLT - PLATELET COUNT 173 10^3/uL (130-450); RED BLOOD COUNT 3.44 10^6/uL (4.70-6.10); RED CELL DISTRIBUTION WIDTH 12.2 % (12.0-15.0)
[2021-12-14 12:37] LABS: ALBUMIN 4.4 g/dL (3.2-5.5); ALBUMIN/GLOBULIN RATIO 1.6 (1.0-2.2); CALCIUM 9.5 mg/dL (8.5-10.3); CREATININE 0.7 mg/dL (0.6-1.2); POTASSIUM 4.5 mmol/L (3.5-5.0); TOTAL PROTEIN 7.1 g/dL (6.7-8.2)
[2021-12-14 13:12] LABS: ESTIMATED AVERAGE GLUCOSE 126 mg/dL (70-100)
== END 2021-12-14 07:07 | disposition home or self-care (01) ==
LOC: LAB.N 07:06
PROVIDERS: ATTEND Family Medicine
DX: E11.9 Type 2 diabetes mellitus without complications (principal)
CPT/HCPCS: 36415; 80053; 83036; 85025

== ENCOUNTER 2021-12-26 08:00 | Outpatient (CLI) | payer MEDICARE, OTHER ==
[2021-12-26 08:25] LABS: FECAL OCCULT BLOOD (FIT) NEGATIVE (NEGATIVE)
== END 2021-12-26 23:59 | disposition home or self-care (01) ==
LOC: LAB.N 08:00
PROVIDERS: ATTEND Nurse Practitioner
DX: Z12.11 Encounter for screening for malignant neoplasm of colon (principal)
CPT/HCPCS: 82274

== ENCOUNTER 2022-04-27 17:27 | Inpatient (IN) | payer MEDICARE, OTHER ==
[2022-04-27] MEDS ORDERED: SODIUM CHLORIDE 0.9% 1,000 ML IV STA (17:48)
--- NOTE | 2022-04-27 17:50 | ED Physician Documentation ---
History of Present Illness - Stated complaint Stated Complaint: AMS - Chief complaint Chief Complaint: Neuro - History obtained from History obtained from: Patient, EMS - History of Present Illness Timing: Today Pain level max: 0 Pain level now: 0 - Additonal information Additional information: Patient is a 76-year-old male brought in by EMS today. He was at the dinner table when he reportedly had an episode of stiffening for 2 to 3 seconds and then was confused for about 20 minutes. Similar to a prior episode in 2019 when his sodium levels were low and caused a seizure. EMS states that when they arrived on scene the patient was not speaking. Took about 20 minutes since the event for him to fully recover. Patient states he has been drinking beer for most of the day today and had some wine with dinner as well. His states that he drinks a significant amount of beer and has recurrent low sodium levels. He reportedly had a stroke about 2 years ago, deficit at that time with speech impediment. Patient had no focal neurological deficits with EMS. Review of Systems Ten Systems: 10 systems reviewed and negative Constitutional: denies: Fever, Chills Ears: denies: Ear pain Nose: denies: Rhinorrhea / runny nose, Congestion Throat: denies: Sore throat Cardiac: denies: Chest pain / pressure Respiratory: denies: Dyspnea, Cough GI: denies: Nausea, Vomiting, Diarrhea Skin: denies: Rash Musculoskeletal: denies: Neck pain, Back pain Neurologic: denies: Headache PD PAST MEDICAL HISTORY - Past Medical History Cardiovascular: Hypertension, Coronary artery disease Respiratory: None Endocrine/Autoimmune: None GI: GERD, Ulcers : None HEENT: None, Chronic hearing loss Psych: None Musculoskeletal: Gout Derm: None - Past Surgical History General: Colonoscopy, EGD Cardiovascular: Vascular surgery, Angioplasty - Present Medications Home Medications: Ambulatory Orders Medication Instructions Recorded Confirmed Losartan [Cozaar] 100 mg PO DAILY 02/21/15 04/03/21 Atorvastatin Calcium 40 mg PO QPM 04/03/21 04/03/21 Famotidine [Pepcid] 20 mg PO BID 04/03/21 04/03/21 carvediloL [Coreg] 12.5 mg PO BID 04/03/21 04/03/21 metFORMIN [Glucophage] 1,000 mg PO BID 04/03/21 04/03/21 - Allergies Allergies/Adverse Reactions: Allergies Allergy/AdvReac Type Severity Reaction Status Date / Time Penicillins Allergy Nausea Verified 04/03/21 09:59 tetanus toxoid, adsorbed Allergy Cramps Verified 04/03/21 09:59 - Social History Does the pt smoke?: No Smoking Status: Never smoker PD ED PE NORMAL - Vitals Vital signs reviewed: Yes - General General: Alert and oriented X 3, No acute distress, Well developed/nourished - HEENT HEENT: Atraumatic, PERRL, EOMI, Moist mucous membranes, Pharynx benign - Neck Neck: Supple, no meningeal sign - Cardiac Cardiac: RRR, Strong equal pulses - Respiratory Respiratory: No respiratory distress, Clear bilaterally - Abdomen Abdomen: Soft, Non tender, Non distended - Derm Derm: Warm and dry - Extremities Extremities: No edema, No calf tenderness / cord - Neuro Neuro: Alert and oriented X 3, electrical designer 2-12 intact, No motor deficit, No sensory deficit, Normal speech Eye Opening: Spontaneous Motor: Obeys Commands Verbal: Oriented GCS Score: 15 - Psych Psych: Normal mood, Normal affect Results - Vitals Vitals: Vital Signs - 24 hr 04/27/22 04/27/22 04/27/22 17:47 18:21 18:51 Temperature 37.6 C Heart Rate 61 72 77 Respiratory 13 14 13 Rate Blood Pressure 145/76 H 124/67 133/74 H O2 Saturation 100 100 100 04/27/22 19:40 Temperature 36.6 C Heart Rate 87 Respiratory 18 Rate Blood Pressure 149/90 H O2 Saturation 100 Oxygen O2 Source Room air - EKG (time done) 1752 Rate: Rate (enter#) (62) Rhythm: NSR Mcgregor: Normal Intervals: RBBB, Other (short CT) - Labs Labs: Laboratory Tests 04/27/22 04/27/22 04/27/22 17:54 17:54 17:54 WBC 5.3 RBC 3.24 L Hgb 10.9 L Hct 29.8 L MCV 92.0 MCH 33.6 H MCHC 36.6 H RDW 11.9 L Plt Count 132 MPV 7.6 Neut # (Auto) 2.4 Lymph # (Auto) 1.6 [place] # (Auto) 0.8 Eos # (Auto) 0.4 Baso # (Auto) 0.1 Absolute Nucleated RBC 0.00 Nucleated RBC % 0.0 Sodium 121 L Potassium 4.6 Chloride 89 L Carbon Dioxide 20 L Anion Gap 12.0 BUN 6 Creatinine 0.7 Estimated GFR (MDRD) 110 Glucose 169 H Calcium 9.1 Phosphorus 3.7 Magnesium 1.4 L Total Bilirubin 1.0 AST 19 ALT < 10 L Alkaline Phosphatase 30 L Troponin I High Sens 3.7 Total Protein 6.8 Albumin 4.0 Globulin 2.8 Albumin/Globulin Ratio 1.4 Lipase 30 Ethyl Alcohol 28.9 SARS-CoV-2 (PCR) 04/27/22 19:20 WBC RBC Hgb Hct MCV MCH MCHC RDW Plt Count MPV Neut # (Auto) Lymph # (Auto) [place] # (Auto) Eos # (Auto) Baso # (Auto) Absolute Nucleated RBC Nucleated RBC % Sodium Potassium Chloride Carbon Dioxide Anion Gap BUN Creatinine Estimated GFR (MDRD) Glucose Calcium Phosphorus Magnesium Total Bilirubin AST ALT Alkaline Phosphatase Troponin I High Sens Total Protein Albumin Globulin Albumin/Globulin Ratio Lipase Ethyl Alcohol SARS-CoV-2 (PCR) NOT DETECTED - Rads (name of study) head CT Radiology: Final report received, EMP read contemporaneously, See rad report (No acute intracranial abnormality) PD MEDICAL DECISION MAKING - ED course Complexity details: reviewed old records, reviewed results, re-evaluated patient, considered differential, d/w patient, d/w family, d/w regulatory consultant ED course: Patient is a 76-year-old male who presents to the emergency department with al tered mental status today. Unclear if he had an actual seizure or not at home. There was only about 1 to 2 seconds of stiffening but he was confused for about 20 minutes after. Family states that this is similar to his last episode of hyponatremia. He does appear to have chronic hyponatremia but his most recent laboratory tests were around 135. He is down to 121 today. Actively seizing here. Did not have generalized tonic-clonic seizing. He has not currently confused. We will admit the patient for correction of his hyponatremia. His states that the patient's doctor told him that the hyponatremia is from drinking beer. Discussed the case with the hospitalist who accepts. This document was made in part using voice recognition software. While efforts are made to proofread this document, sound alike and grammatical errors may occur. Departure - Departure Disposition: 68 [facility] DC/Xfer Clinical Impression: Hyponatremia Condition: Stable Discharge Date/Time: 04/27/22 21:00 NIHSS - Time Time: 17:50 - Level of Consciousness Level of consciousness: (0) Alert, Keenly responsive LOC Questions: (0) Answers both Q's correct LOC Commands: (0) Performs both correctly - Gaze Best Gaze: (0) Normal - Visual Visual: (0) No loss - Facial Palsy Facial Palsy: (0) Normal, symmetrical movement - Motor Arms (both separate) Motor Arm (right): (0) No drift Motor Arm (left): (0) No drift - Motor Legs (both separate) Motor Leg (right): (0) No drift Motor Leg (left): (0) No drift - Limb Ataxia Limb Ataxia: (0) Absent - Sensory Sensory: (0) Normal - Best Language Best Language: (0) No aphasia - Dysarthria Dysarthria: (0) Normal - Extinction and Inattention (formally neg Extinction and inattention: (0) No abnormality - Total Score/Results Total Score/Result: 0
[2022-04-27 18:00] LABS: BASOPHILS # (AUTO) 0.1 10^3/uL (0.0-0.1); BASOPHILS % (AUTO) 1.5 %; EOSINOPHILS # (AUTO) 0.4 10^3/uL (0.0-0.7); EOSINOPHILS % (AUTO) 8.3 %; HCT - HEMATOCRIT 29.8 % (42.0-52.0); HGB - HEMOGLOBIN 10.9 g/dL (14.0-18.0); LYMPHOCYTES # (AUTO) 1.6 10^3/uL (1.5-3.5); MEAN CORPUSCULAR HEMOGLOBIN 33.6 pg (27.0-31.0); MEAN CORPUSCULAR HGB CONC 36.6 g/dL (32.0-36.0); MEAN PLATELET VOLUME 7.6 fL (7.4-11.4); MONOCYTES # (AUTO) 0.8 10^3/uL (0.0-1.0); MONOCYTES % (AUTO) 14.8 %; NEUTROPHILS # (AUTO) 2.4 10^3/uL (1.5-6.6); NEUTROPHILS % (AUTO) 45.2 %; PLT - PLATELET COUNT 132 10^3/uL (130-450); RED BLOOD COUNT 3.24 10^6/uL (4.70-6.10); RED CELL DISTRIBUTION WIDTH 11.9 % (12.0-15.0); WHITE BLOOD COUNT 5.3 x10^3/uL (4.8-10.8)
[2022-04-27 18:25] LABS: ALBUMIN/GLOBULIN RATIO 1.4 (1.0-2.2); ALKALINE PHOSPHATASE 30 IU/L (42-121); ALT ALANINE AMINOTRANSFERASE < 10 IU/L (10-60); AST ASPARTATE AMINOTRANSFERASE 19 IU/L (10-42); BUN - BLOOD UREA NITROGEN 6 mg/dL (6-20); CALCIUM 9.1 mg/dL (8.5-10.3); CARBON DIOXIDE - CO2 20 mmol/L (21-32); CHLORIDE 89 mmol/L (101-111); CREATININE 0.7 mg/dL (0.6-1.2); ETOH - ETHANOL 28.9 mg/dL; GFR - MDRD 110 (>89); GLUCOSE 169 mg/dL (70-100); LIPASE 30 U/L (22-51); MAGNESIUM 1.4 mg/dL (1.7-2.8); PHOSPHORUS 3.7 mg/dL (2.5-4.6); POTASSIUM 4.6 mmol/L (3.5-5.0); SODIUM 121 mmol/L (135-145); TOTAL PROTEIN 6.8 g/dL (6.7-8.2)
[2022-04-27] MEDS ORDERED: SODIUM CHLORIDE 0.9% 500 ML IV STA (18:35)
--- NOTE | 2022-04-27 18:44 | CT Report ---
PROCEDURE: HEAD WO INDICATIONS: altered mental status TECHNIQUE: Noncontrast 4.5 mm thick angled axial sections acquired from the foramen magnum to the vertex. For r adiation dose reduction, the following was used: automated exposure control, adjustment of mA and/or kV according to patient size. COMPARISON: 03/28/2021 FINDINGS: Image quality: Excellent CSF spaces: Basal cisterns are patent. Lateral ventricles are symmetric. Volume: Periventricular white matter disease is commonly seen with chronic microangiopathy. Volume lo ss is present. These findings are moderate. Brain: No intracranial hemorrhage. Bills-white differentiation is grossly maintained. Craniofacial structures: No displaced fracture. Sinuses are clear. Orbits are intact. IMPRESSION: No acute intracranial abnormality. Reviewed by: Serafin Barrera MD on 04/27/2022 6:43 PM PST Approved by: Serafin Barrera MD on 04/27/2022 6:43 PM PST Station ID: [id number]
[2022-04-27] MEDS ORDERED: SODIUM CHLORIDE FLUSH 0.9% 10 ML SYRINGE IVP PRN (20:06)
[2022-04-27] MEDS ORDERED: ONDANSETRON 4 MG/2 ML VIAL IVP PRN (20:06)
[2022-04-27] MEDS ORDERED: MAGNESIUM SULFATE 1 GM/2 ML VIAL IVP STA (20:13)
[2022-04-27] MEDS: SODIUM CHLORIDE 0.9% 1,000 ML IV SCH (20:15)
--- NOTE | 2022-04-27 20:32 | HISTORY & PHYSICAL EXAMINATION ---
Chief Complaint - Chief Complaint Chief Complaint: AMS History of Present Illness - History of Present Illness HPI Comment/Other: 76 Y old male with PMH HTN, DM2, HLP, CAD, CVA, Hyponatremia, BIBA due to AMS Which started at dinner time. As per pt, he was at dinner table when all of sudden his body stiffened for 2-3 seconds and than became confused for about 20 minutes. EMS was called. As per EMS, pt was confused and not speaking. On presentaion, Pt was afebrile. SaO2 normal. Labs showed Na 121, Mag 1.[address] head w/o contrast showed no acute findings Pt is back to his basline at the time of my examination. He is alert and awake, able to move all extremities. Denies headache, chest pain, SOB, nausea, vomiting, diarrhea constipation, symptoms As per pt, he has been drinking beer today In ER, pt was given NS 500 CC IV bilus and than started at 150 cc/h Pt is being admitted due to AMS, Hyponatremia, Hypomagnesemia History - Past Medical History Cardiovascular: reports: Hypertension, Coronary artery disease Respiratory: reports: None Neuro: reports: CVA Endocrine/Autoimmune: reports: None, Type 2 diabetes GI: reports: GERD, Ulcers : reports: None HEENT: reports: None, Chronic hearing loss Psych: reports: None Musculoskeletal: reports: Gout Derm: reports: None MRSA Hx?: No - Past Surgical History General: reports: Colonoscopy, EGD Cardiovascular: reports: Vascular surgery, Angioplasty - Family & Social History Family History: Mother: , Father: Family History Comment/Other: Patient reported his father at age 71 with medical history of ALS and myocardial ischemia. His mother at age 94 with hx of CAD Social History Notes: He denies history of cigarette smoking, but he report he daily drinks beer, Denies drug issue. Meds/Allgy - Home Medications Home Medications: Ambulatory Orders Medication Instructions Recorded Confirmed Losartan [Cozaar] 100 mg PO DAILY 02/21/15 04/03/21 Atorvastatin Calcium 40 mg PO QPM 04/03/21 04/03/21 Famotidine [Pepcid] 20 mg PO BID 04/03/21 04/03/21 carvediloL [Coreg] 12.5 mg PO BID 04/03/21 04/03/21 metFORMIN [Glucophage] 1,000 mg PO BID 04/03/21 04/03/21 - Allergies Allergies/Adverse Reactions: Allergies Allergy/AdvReac Type Severity Reaction Status Date / Time Penicillins Allergy Nausea Verified 04/03/21 09:59 tetanus toxoid, adsorbed Allergy Cramps Verified 04/03/21 09:59 Review of Systems - Other Findings Other Findings: 10 points systems were reviewed and were negative except mentioned in HPI Exam - Vital Signs Vital Signs: Vital Signs x48h Temp Pulse Resp BP Pulse Ox 04/27/22 19:40 36.6 C 87 18 149/90 H 100 04/27/22 18:51 77 13 133/74 H 100 04/27/22 18:21 72 14 124/67 100 04/27/22 17:47 37.6 C 61 13 145/76 H 100 - Physical Exam General Appearance: positive: No acute distress, Alert Eyes Bilateral: positive: Normal inspection ENT: positive: ENT inspection nml Neck: positive: Nml inspection, Thyroid nml Respiratory: positive: No respiratory distress, Breath sounds nml Cardiovascular: positive: Regular rate & rhythm Abdomen: positive: Non-tender, Nml bowel sounds Skin: positive: No rash Extremities: positive: No pedal edema Neurologic/Psychiatric: positive: Oriented x3, Motor nml, Sensation nml Conclusion/Plan - Lab Results Fish Bones: 04/27/22 17:54 04/27/22 17:54 - Other Other Results/Comments: A: AMS Metabolic encephalopathy Hyponatremia Hypomagnesemia HTN DM2 HLP CAD H/O CVA H/O Hyponatremia H/O beer drinking and recurrent hyponatremia Plan: Admit in Med surg with tele NPO Swallow screen by RN NS@ 100 cc/h Monitor mental status Neuro checks Monitor seroum sodium q6h. Correction of sodium should not exceed more than 0.5 Meq per hour Replace mag and monitor Cont coreg and losartan Sliding scale insulin Cont aspirin and lipitor DVT prophylaxic: SCD Full code Pt will be ad mitted as inpatient as more than 2 midnight stay is expected
[2022-04-27 20:50] LABS: BILIRUBIN,URINE NEGATIVE (NEGATIVE); CLARITY,URINE CLEAR (CLEAR); GLUCOSE, URINE (UA) NEGATIVE (NEGATIVE); KETONES,URINE (UA) NEGATIVE (NEGATIVE); LEUKOCYTE ESTERASE, URINE NEGATIVE (NEGATIVE); NITRITE,URINE NEGATIVE (NEGATIVE); OCCULT BLOOD,URINE NEGATIVE (NEGATIVE); PROTEIN,URINE NEGATIVE (NEGATIVE); UROBILINOGEN,URINE 0.2 (NORMAL) E.U./dL (NORMAL)
[2022-04-27] MEDS: carvediloL 12.5 MG TABLET PO SCH (21:58)
[2022-04-27] MEDS: INSULIN LISPRO 300 UNIT/3 ML PEN SUBQ SCH (21:58)
[2022-04-28] MEDS: SODIUM CHLORIDE FLUSH 0.9% 10 ML SYRINGE IVP SCH ×2 (02:31→08:38)
[2022-04-28] MEDS: SODIUM CHLORIDE 0.9% 1,000 ML IV SCH (03:25)
[2022-04-28] MEDS: INSULIN LISPRO 300 UNIT/3 ML PEN SUBQ SCH ×2 (08:32→12:03)
[2022-04-28] MEDS: carvediloL 12.5 MG TABLET PO SCH (08:38)
[2022-04-28] MEDS ORDERED: ATORVASTATIN 40 MG TABLET PO SCH (09:00)
[2022-04-28] MEDS ORDERED: LOSARTAN 50 MG TABLET PO SCH (09:00)
[2022-04-28] MEDS ORDERED: ASPIRIN 325 MG TABLET PO SCH (09:00)
--- NOTE | 2022-04-28 10:45 | Discharge Plan ---
Discharge Plan Problem Reviewed?: Yes Disposition: Home, Self Care Condition: Stable Diet: Regular Activity Restrictions: Activity as Tolerated Shower Restrictions: No Driving Restrictions: Yes (no driving until you see Neurologist) Health Concerns: You have a problem with alcohol abuse. And then alcohol abuse results in a chronic low sodium. You had enough of a low sodium while visiting in [place] and ended up being hospitalized with a seizure disorder. Unfortunately you continue to drink on a daily basis. And your sodium is low on a daily basis. In looking at our medical records dating to 2014, your sodium is usually 122, 125, and usually no higher than 130. The lowest has been is 119 in April 2021. You had a moment of stiffness and unresponsiveness at the dinner table yesterday. You were then foggy and confused for about 20 minutes. You were brought to our emergency room and your sodium was 121. Liver enzymes are okay. You are chronically anemic. And normal amount of hemoglobin a man is 14 g. You varied between 9.7 and 11.8. In the emergency room you were 10.9. After being admitted to the hospital overnight, your sodium is now 127. Your fogginess is clear. You are oriented. You feel safe to go home and have recovered faster than we thought you were going to. Plan of Treatment: Please continue to see your primary care provider in follow-up. I would recommend that they check your sodium once a month. If his sodium gets below 125, consider getting a liter or 2 of normal saline that week. They can set that up in the MAC. Please see your neurologist in follow-up. You have an appointment in May. You cannot drive until you see the neurologist. I would asked the neurologist if is okay for you to drive, but unfortunately I think you may not be able to drive indefinitely. Please stop drinking. Completely. In the meantime, make sure you take a vitamin because vitamins have a lot of B vitamins. I would also recommend that you take thiamine [id number] and that will help your anemia in the face of alcohol abuse. Care Goals: At this time your care goals are to resume your usual life. But we would like to see you in alcoholics anonymous or a support group that would help you stop drinking. Assessment: Patient is alert, oriented. Knows where he is why he is here. Earpiece is were not working and he is very deaf. is at the bedside and understands discharge plan No Smoking: If you smoke, Please STOP! Call for help. Follow-up with: Shayna Cosme ARNP [Primary Care Provider] -
--- NOTE | 2022-04-28 11:02 | PHARMACY PROGRESS NOTE ---
- Best Possible Medication History Admit Date and Time: 04/27/222005 Processed by: Pharmacy Medication History completed: Yes Patient Interview: Pt unable to participate As the person ultimately responsible for medication therapy, providers are able to order a medication from an existing home medication list in [facility] via the "Reconcile Routine" prior to Confirmation of that medication by research support specialist. Such practice is discouraged except when the physician, in their clinical judgment, deems that a medical need exists for a medication without regard to previous use.
--- NOTE | 2022-04-28 11:19 | DISCHARGE SUMMARY ---
Discharge Summary Admit Date: 04/27/22 Discharge Date: 04/28/22 Discharging Provider: Zoila Velarde MD Primary Care Provider: ARI Vang Code Status: Attempt Resuscitation Condition at Discharge: Stable Discharge Disposition: 01 Home, Self Care - DIAGNOSES Discharge Diagnoses with Status of Each Condition: 1. Altered mental status 2. Metabolic encephalopathy 3. Hyponatremia, chronic 4. Hypomagnesemia 5. Hypertension 6. Type 2 diabetes mellitus, without complication, not on long-term insulin 7. Chronic alcohol abuse 8. Chronic macrocytic anemia - HPI History of Present Illness: 76 Y old male with PMH HTN, DM2, HLP, CAD, CVA, Hyponatremia, BIBA due to AMS Which started at dinner time. As per pt, he was at dinner table when all of sudden his body stiffened for 2-3 seconds and than became confused for about 20 minutes. EMS was called. As per EMS, pt was confused and not speaking. On presentaion, Pt was afebrile. SaO2 normal. Labs showed Na 121, Mag 1.[address] head w/o contrast showed no acute findings Pt is back to his basline at the time of my examination. He is alert and awake, able to move all extremities. Denies headache, chest pain, SOB, nausea, vomiting, diarrhea constipation, symptoms As per pt, he has been drinking beer today In ER, pt was given NS 500 CC IV bilus and than started at 150 cc/h Pt is being admitted due to AMS, Hyponatremia, Hypomagnesemia History - Past Medical History Cardiovascular: reports: Hypertension, Coronary artery disease Respiratory: reports: None Neuro: reports: CVA Endocrine/Autoimmune: reports: None, Type 2 diabetes GI: reports: GERD, Ulcers : reports: None HEENT: reports: None, Chronic hearing loss Psych: reports: None Musculoskeletal: reports: Gout Derm: reports: None MRSA Hx?: No - CONSULTS | PROCEDURES Procedures: Head CT is without acute intracranial abnormality - HOSPITAL COURSE Hospital Course: In reviewing his medical record through [employer], he has been chronically anemic, chronically macrocytic, and chronically hyponatremic since as far back as this computer goes which is 2014. He had a seizure in [place] in 2020 or so when he was visiting relatives. Attributed to hyponatremia. But he was not put on seizure drugs. He has had frequent falls due to ataxia over the last few years. He was placed on MedSurg, telemetry, and given normal saline. His sodium went from 1 21-123 and 127 on the morning of discharge. He feels back to normal. He is oriented to person place and time. He has recovered more quickly than we thought. We had admitted him inpatient with 2 midnights. He feels like he is back to baseline and his labs are baseline and his would like to take him home and he is in agreement. He already has a neurology appointment in May for follow-up. I have asked him not to drive until he sees that neurologist. I have given he and his copies of his MCV, hemoglobin, and chronic hyponatremia labs. If he could sit down and discuss this with his primary care provider at his next visit with him.I have recommended that he get his sodium gets checked every month. If he drops below a preset amount, consider infusing 1 to 2 L of normal saline. If he has not had a GI work-up for his chronic anemia that is macrocytic, that should probably also be undertaken. I have as ked him to make sure he takes a vitamin on a daily basis because of his be vitamin requirements. And take [id number] thiamine once a day. At discharge, he is alert, he is oriented. Profoundly deaf with a hearing aid barely working but he can hear me. is at the bedside. Temperature is 36.7. Heart rate 73. Blood pressure 147/73. Respirations 18. 99% on room air. He is oriented to person place and time. Normal speech patterns. Very fatalistic. Shrugs his shoulders and said "I did this to myself" but he does not know if he is going to stop drinking. Neck is supple. Lungs are clear. Regular rate and rhythm. Abdomen soft, nontender, normal bowel sounds. - ALLERGIES Allergies/Adverse Reactions: Allergies Allergy/AdvReac Type Severity Reaction Status Date / Time Penicillins Allergy Nausea Verified 04/03/21 09:59 tetanus toxoid, adsorbed Allergy Cramps Verified 04/03/21 09:59 - MEDICATIONS Home Medications: Ambulatory Orders Medication Instructions Recorded Confirmed Losartan [Cozaar] 100 mg PO DAILY 02/21/15 04/28/22 Atorvastatin Calcium 40 mg PO QPM 04/03/21 04/28/22 Famotidine [Pepcid] 20 mg PO BID 04/03/21 04/28/22 carvediloL [Coreg] 12.5 mg PO BID 04/03/21 04/28/22 metFORMIN [Glucophage] 1,000 mg PO BID 04/03/21 04/28/22 - LABS Result Diagrams: 04/27/22 17:54 04/28/22 04:31
[2022-04-28 12:13] VITALS: BP 150/75
== END 2022-04-28 12:30 | disposition home or self-care (01) | DRG 947 ==
LOC: EDUNIT# → ED 17:27 → MS2 20:06
PROVIDERS: ADMIT Internal Medicine; ATTEND Specialist
DX: R41.82 Altered mental status, unspecified (principal); R56.9 Unspecified convulsions; Z20.822 Contact with and (suspected) exposure to COVID-19; G93.41 Metabolic encephalopathy; E87.1 Hypo-osmolality and hyponatremia; E83.42 Hypomagnesemia; I45.10 Unspecified right bundle-branch block; I10 Essential (primary) hypertension; E11.9 Type 2 diabetes mellitus without complications; F10.10 Alcohol abuse, uncomplicated; D53.9 Nutritional anemia, unspecified; E78.5 Hyperlipidemia, unspecified; I25.10 Atherosclerotic heart disease of native coronary artery without angina pectoris; H91.90 Unspecified hearing loss, unspecified ear; K21.9 Gastro-esophageal reflux disease without esophagitis; Z86.73 Personal history of transient ischemic attack (TIA), and cerebral infarction without residual deficits; Z79.84 Long term (current) use of oral hypoglycemic drugs; Z91.81 History of falling
CPT/HCPCS: 36415; 70450; 80053; 81003; 83690; 83735; 84100; 84295; 84484; 85025; 87635; 93005; 96360; 96361; 99285; A9270; G0480; 80048; 80320; 81001; 87086

== ENCOUNTER 2022-05-06 09:15 | Outpatient (CLI) | payer MEDICARE, OTHER ==
[2022-05-06 13:03] LABS: CALCIUM 9.2 mg/dL (8.5-10.3); CREATININE 0.8 mg/dL (0.6-1.2); POTASSIUM 3.9 mmol/L (3.5-5.0)
[2022-05-06 13:33] LABS: ESTIMATED AVERAGE GLUCOSE 123 mg/dL (70-100); HEMOGLOBIN A1c% 5.9 % (4.27-6.07)
== END 2022-05-06 09:16 | disposition home or self-care (01) ==
LOC: LAB.N 09:15
PROVIDERS: ATTEND Nurse Practitioner
DX: E87.1 Hypo-osmolality and hyponatremia (principal); E11.9 Type 2 diabetes mellitus without complications
CPT/HCPCS: 36415; 80048; 83036

== ENCOUNTER 2022-05-20 08:00 | Outpatient (CLI) | payer MEDICARE, OTHER ==
[2022-05-20 19:07] LABS: FECAL OCCULT BLOOD (FIT) NEGATIVE (NEGATIVE)
== END 2022-05-20 23:59 | disposition home or self-care (01) ==
LOC: LAB.N 08:00
PROVIDERS: ATTEND Nurse Practitioner
DX: Z12.11 Encounter for screening for malignant neoplasm of colon (principal); E87.1 Hypo-osmolality and hyponatremia
CPT/HCPCS: 36415; 80053; 82274

== ENCOUNTER 2022-05-20 08:44 | Outpatient (CLI) | payer MEDICARE, OTHER ==
[2022-05-20 12:08] LABS: ALBUMIN 3.8 g/dL (3.2-5.5); ALBUMIN/GLOBULIN RATIO 1.3 (1.0-2.2); BILIRUBIN,TOTAL 0.7 mg/dL (0.2-1.0); CALCIUM 8.9 mg/dL (8.5-10.3); CREATININE 0.7 mg/dL (0.6-1.2); POTASSIUM 4.1 mmol/L (3.5-5.0); TOTAL PROTEIN 6.7 g/dL (6.7-8.2)
== END 2022-05-20 08:45 | disposition home or self-care (01) ==
LOC: LAB.N 08:44
PROVIDERS: ATTEND Nurse Practitioner
DX: E87.1 Hypo-osmolality and hyponatremia (principal)
CPT/HCPCS: 36415; 80053

== ENCOUNTER 2022-06-11 12:47 | Outpatient (CLI) | payer MEDICARE, OTHER ==
[2022-06-11 17:57] LABS: CALCIUM 8.7 mg/dL (8.5-10.3); CREATININE 0.8 mg/dL (0.6-1.2)
== END 2022-06-11 12:48 | disposition home or self-care (01) ==
LOC: LAB.N 12:47
PROVIDERS: ATTEND Nurse Practitioner
DX: E87.1 Hypo-osmolality and hyponatremia (principal)
CPT/HCPCS: 36415; 80048

== ENCOUNTER 2022-07-09 07:45 | Outpatient (CLI) | payer MEDICARE, OTHER | END 2022-07-09 07:46 | disposition home or self-care (01) | LOC: LAB.N 07:45 | PROVIDERS: ATTEND Internal Medicine | DX: Z53.9 Procedure and treatment not carried out, unspecified reason (principal) ==

== ENCOUNTER 2022-08-01 11:36 | Outpatient (CLI) | payer MEDICARE, OTHER ==
[2022-08-01 18:23] LABS: CALCIUM 9.3 mg/dL (8.5-10.3); CREATININE 0.8 mg/dL (0.6-1.2); POTASSIUM 4.8 mmol/L (3.5-5.0)
== END 2022-08-01 11:37 | disposition home or self-care (01) ==
LOC: LAB.N 11:36
PROVIDERS: ATTEND Nurse Practitioner
DX: E87.1 Hypo-osmolality and hyponatremia (principal)
CPT/HCPCS: 36415; 80048

== ENCOUNTER 2022-08-14 11:30 | Outpatient (CLI) | payer MEDICARE, OTHER | END 2022-08-14 11:31 | disposition home or self-care (01) | LOC: LAB.N 11:30 | PROVIDERS: ATTEND Nurse Practitioner | DX: Z53.9 Procedure and treatment not carried out, unspecified reason (principal) | CPT/HCPCS: 36415; 80048 ==

== ENCOUNTER 2022-10-22 11:24 | Outpatient (CLI) | payer MEDICARE, OTHER ==
[2022-10-24 10:37] LABS: ESTIMATED AVERAGE GLUCOSE 166 mg/dL (70-100); HEMOGLOBIN A1c% 7.4 % (4.27-6.07)
== END 2022-10-22 11:25 | disposition home or self-care (01) ==
LOC: LAB.N 11:24
PROVIDERS: ATTEND Nurse Practitioner
DX: E11.9 Type 2 diabetes mellitus without complications (principal)
CPT/HCPCS: 36415; 83036

== ENCOUNTER 2022-11-22 11:13 | Outpatient (CLI) | payer MEDICARE, OTHER ==
[2022-11-22 17:53] LABS: CALCIUM 8.8 mg/dL (8.5-10.3); CREATININE 0.8 mg/dL (0.6-1.2); POTASSIUM 4.6 mmol/L (3.5-5.0)
== END 2022-11-22 11:14 | disposition home or self-care (01) ==
LOC: LAB.N 11:13
PROVIDERS: ATTEND Nurse Practitioner
DX: E87.1 Hypo-osmolality and hyponatremia (principal)
CPT/HCPCS: 36415; 80048

== ENCOUNTER 2023-04-04 07:38 | Outpatient (CLI) | payer MEDICARE, OTHER ==
[2023-04-04 13:14] LABS: CHOL/HDL RATIO 1.9 (<5.0); CHOLESTEROL 146 mg/dL; HDL CHOLESTEROL 78 mg/dL; LDL CHOLESTEROL,CALCULATED 58 mg/dL; LDL/HDL RATIO 0.7 (<3.6); TRIGLYCERIDES 48 mg/dL (48-352); VLDL CHOLESTEROL 10 mg/dL
[2023-04-04 13:19] LABS: CREATININE,URINE 29.8 mg/dL; MICROALBUM/CREATININE RATIO,UR 110.7 ug/mg (<30.0); MICROALBUMIN,URINE 3.3 mg/dL
[2023-04-04 16:27] LABS: ESTIMATED AVERAGE GLUCOSE 131 mg/dL (70-100); HEMOGLOBIN A1c% 6.2 % (4.27-6.07)
== END 2023-04-04 07:39 | disposition home or self-care (01) ==
LOC: LAB.N 07:38
PROVIDERS: ATTEND Internal Medicine
DX: E87.1 Hypo-osmolality and hyponatremia (principal); E78.5 Hyperlipidemia, unspecified; E11.9 Type 2 diabetes mellitus without complications; D51.9 Vitamin B12 deficiency anemia, unspecified
CPT/HCPCS: 36415; 80061; 82043; 82570; 83036; 83721

== ENCOUNTER 2023-06-06 08:09 | Outpatient (CLI) | payer MEDICARE, OTHER ==
[2023-06-06 12:01] LABS: BASOPHILS # (AUTO) 0.1 10^3/uL (0.0-0.1); BASOPHILS % (AUTO) 1.4 %; EOSINOPHILS # (AUTO) 0.2 10^3/uL (0.0-0.7); EOSINOPHILS % (AUTO) 3.2 %; HCT - HEMATOCRIT 33.6 % (42.0-52.0); HGB - HEMOGLOBIN 11.6 g/dL (14.0-18.0); LYMPHOCYTES # (AUTO) 1.7 10^3/uL (1.5-3.5); LYMPHOCYTES % (AUTO) 34.3 %; MEAN CORPUSCULAR HEMOGLOBIN 32.5 pg (27.0-31.0); MEAN CORPUSCULAR HGB CONC 34.5 g/dL (32.0-36.0); MEAN CORPUSCULAR VOLUME 94.1 fL (80.0-94.0); MEAN PLATELET VOLUME 8.3 fL (7.4-11.4); MONOCYTES # (AUTO) 0.6 10^3/uL (0.0-1.0); MONOCYTES % (AUTO) 11.5 %; NEUTROPHILS # (AUTO) 2.5 10^3/uL (1.5-6.6); NEUTROPHILS % (AUTO) 49.4 %; PLT - PLATELET COUNT 212 10^3/uL (130-450); RED BLOOD COUNT 3.57 10^6/uL (4.70-6.10); RED CELL DISTRIBUTION WIDTH 12.7 % (12.0-15.0)
[2023-06-06 12:17] LABS: ESTIMATED AVERAGE GLUCOSE 126 mg/dL (70-100)
[2023-06-06 12:37] LABS: ALBUMIN 4.3 g/dL (3.2-5.5); ALBUMIN/GLOBULIN RATIO 1.7 (1.0-2.2); BILIRUBIN,TOTAL 0.9 mg/dL (0.2-1.0); CALCIUM 8.9 mg/dL (8.5-10.3); CREATININE 0.8 mg/dL (0.6-1.3); POTASSIUM 4.1 mmol/L (3.5-4.5); TOTAL PROTEIN 6.8 g/dL (6.4-8.9)
== END 2023-06-06 08:10 | disposition home or self-care (01) ==
LOC: LAB.N 08:09
PROVIDERS: ATTEND Nurse Practitioner
DX: E87.1 Hypo-osmolality and hyponatremia (principal); D51.8 Other vitamin B12 deficiency anemias; E11.9 Type 2 diabetes mellitus without complications; R70.0 Elevated erythrocyte sedimentation rate
CPT/HCPCS: 36415; 80053; 82607; 83036; 85025; 85651

== ENCOUNTER 2023-12-11 08:38 | Outpatient (CLI) | payer MEDICARE, OTHER ==
[2023-12-11 12:20] LABS: BASOPHILS # (AUTO) 0.1 10^3/uL (0.0-0.1); BASOPHILS % (AUTO) 1.4 %; EOSINOPHILS # (AUTO) 0.3 10^3/uL (0.0-0.7); EOSINOPHILS % (AUTO) 5.8 %; HCT - HEMATOCRIT 33.6 % (42.0-52.0); HGB - HEMOGLOBIN 11.7 g/dL (14.0-18.0); LYMPHOCYTES # (AUTO) 1.4 10^3/uL (1.5-3.5); LYMPHOCYTES % (AUTO) 25.6 %; MEAN CORPUSCULAR HEMOGLOBIN 33.1 pg (27.0-31.0); MEAN CORPUSCULAR HGB CONC 34.8 g/dL (32.0-36.0); MEAN CORPUSCULAR VOLUME 95.2 fL (80.0-94.0); MEAN PLATELET VOLUME 8.4 fL (7.4-11.4); MONOCYTES # (AUTO) 0.7 10^3/uL (0.0-1.0); MONOCYTES % (AUTO) 12.5 %; NEUTROPHILS % (AUTO) 54.5 %; PLT - PLATELET COUNT 204 10^3/uL (130-450); RED BLOOD COUNT 3.53 10^6/uL (4.70-6.10); RED CELL DISTRIBUTION WIDTH 12.7 % (12.0-15.0); WHITE BLOOD COUNT 5.5 x10^3/uL (4.8-10.8)
[2023-12-11 12:39] LABS: ALBUMIN 4.3 g/dL (3.2-5.5); ALBUMIN/GLOBULIN RATIO 1.5 (1.0-2.2); CALCIUM 8.9 mg/dL (8.5-10.3); CREATININE 0.7 mg/dL (0.6-1.3); POTASSIUM 4.1 mmol/L (3.5-4.5); TOTAL PROTEIN 7.2 g/dL (6.4-8.9)
[2023-12-11 12:43] LABS: ESTIMATED AVERAGE GLUCOSE 123 mg/dL (70-100); HEMOGLOBIN A1c% 5.9 % (4.27-6.07)
== END 2023-12-11 08:39 | disposition home or self-care (01) ==
LOC: LAB.N 08:38
PROVIDERS: ATTEND Nurse Practitioner
DX: E11.9 Type 2 diabetes mellitus without complications (principal); D51.8 Other vitamin B12 deficiency anemias
CPT/HCPCS: 36415; 80053; 82607; 83036; 85025